=== PATIENT | female | born 1950 | race Caucasian/White ===

== ENCOUNTER 2016-05-08 08:21 | Day surgery (SDC) | payer OTHER ==
[~2016-05-08] VITALS: Ht 156.2 cm; Wt 77.0 kg
[2016-05-08] VITALS (9 sets, daily range): BP systolic 98–129; BP diastolic 56–80; PULSE 67–83; TEMP 36.3–36.8; O2SAT 95–99; Ht 156.2 cm; Wt 77.0 kg
[~2016-05-08 08:21] MED LIST: ACET-1138 PO; ALBUAER19 INH; ASPEC81 PO; ATOR-22 PO; CLB200 PO; GABA-113 PO; HYDR12.55 PO; LEVO50TA6 PO; LOSA1TAB38 PO; METO25TA3 PO; MRP5 PO; OMEP40CA PO; ONDA8TAB6 PO; OXYM0.056 INTNAS; RXC5 PO; SNK PO
[2016-05-08] MEDS ORDERED: GLC/500 PO (09:24)
[2016-05-08] MEDS ORDERED: TRAM-10 PO (09:24)
--- NOTE | 2016-05-08 10:37 | Discharge Instructions ---
Discharge Instructions Procedure Procedure Date: May 08, 2016. Reason for visit: Lumbar Pain. Discharge Discharge Date: May 08, 2016. Discharge Diagnosis: s/p lumbar myelogram Instructions Activity Recommendations: 1 Day-May resume regular activity, 48 Hours of decreased exertion Return to School/Work: no limitations Recommended Home Diet: No Limitations Provider Instructions: ACTIVITY RECOMMENDATIONS: * Rest today. * Resume regular activity in one day. MEDICATIONS: * May take Tylenol or Ibuprofen as needed for pain. DIET: * Resume previous diet. SPECIAL CARE INSTRUCTIONS: Call your doctor if: * Temperature above 101 degrees F. * Pain not relieved by pain medicine ordered. * Increased drainage or redness from incision. * Notify your doctor with any questions or concerns. Call your doctor or go to the nearest Emergency Department if you experience: * Increased chest pain or shortness of breath. FOLLOW UP VISIT: Follow-up with Referring Physician as scheduled. Allergies Coded Allergies: Lisinopril (Verified Adverse Reaction, Unknown, COUGH, 05/08/16) Neto Ghosh Recommendations: Call your doctor if: * Temperature above 101 degrees * Pain not relieved by pain medicine ordered * There is increased drainage or redness from any incision * You have any unanswered questions or concerns. Your Doctors Instructions noted above were prepared by provider Deshaun Balbuena. Patient Signature Section: Patient Instructions Signature Page Cindy Dang Patient (or Guardian) Signature/Date: I have read and understand the instructions given to me by my caregivers. Caregiver/RN/Doctor Signature/Date: The above-named patient and/or guardian has received patient instructions on this date. + Original Patient Signature Page (only) stays with chart. Please make copy for patient.
--- NOTE | 2016-05-08 11:13 | DIAGNOSTIC IMAGING REPORT ---
CT LUMBAR MYELOGRAM CT DOSE: 670.45 mGycm CLINICAL HISTORY: Lumbar pain. TECHNIQUE: Following a fluoroscopically guided lumbar myelogram, axial unenhanced images through the lumbar spine were obtained without IV contrast. Sagittal and coronal reconstructions were viewed utilizing soft tissue and bone algorithms. COMPARISON STUDY: None. FINDINGS: For purposes of numbering on this exam, the L5-S1 disc space is assigned to axial image [id number]. Vertebral body heights are maintained. There is 8 mm of anterolisthesis of L3 on L4 and 4 mm of anterolisthesis of L4 and L5. There are bilateral pedicle screws at the L4 and L5 levels. The hardware is intact. No cervical spine fracture or suspicious lesion is present. No intracanalicular mass is identified on this exam. The conus terminates at the lower L1 level. Paravertebral soft tissues are unremarkable. T12-L1: The central canal and neural foramen are patent. L1-L2: The central canal and neural foramen are patent. L2-L3: The central canal and the neural foramen are patent. L3-L4: There is grade I anterolisthesis with uncovering of the disc. Disc space narrowing with vacuum disc phenomenon is noted. There is facet arthrosis and mild ligamentous hypertrophy. There is severe narrowing of the central canal and lateral recesses with severe narrowing of the right neural foramen and moderate narrowing of the left neural foramen. L4-L5: Evaluation at this disc level is difficult due to streak artifact from hardware. There may be mild disc bulge. There is disc space narrowing with vacuum disc phenomenon at this level. There is at most mild central canal stenosis. There is moderate bilateral neural foraminal stenosis. L5-S1: The central canal is patent. There is mild during of both neural foramen. IMPRESSION: 1. Status post placement of bilateral pedicle screws and associated hardware at the L4 and L5 levels. Hardware intact. 2. Grade I anterolisthesis of L3 on L4 and L4-L5. 3. Severe central canal, lateral recess and right neural foraminal stenosis at L3-L4 due to anterolisthesis, uncovering of the disc, ligamentous hypertrophy and facet arthrosis. 4. Suspected mild central canal stenosis at L4-L5 which is difficult to evaluate due to artifact from the hardware. 5. No lumbar spine fracture. Electronically signed by: Deshaun Balbuena M.D. 05/08/2016 11:11 AM Dictated Date/Time: 05/08/2016 11:00 AM
--- NOTE | 2016-05-08 11:13 | DIAGNOSTIC IMAGING REPORT ---
FLUOROSCOPICALLY GUIDED LUMBAR MYELOGRAM CLINICAL HISTORY: Lumbar pain. COMPARISON STUDY: No previous studies for comparison. FLUOROSCOPY TIME: 0.8 minutes. PROCEDURE: 4 fluoroscopic images were obtained. The procedure, risks and benefits were discussed with the patient including the risk of spinal headache, bleeding, infection and seizure. The patient agreed to the procedure and informed written consent was obtained. The procedure was performed by Dr. Balbuena following a timeout. An L4-L5 pedicle screw fusion was noted. The right L2-L3 interlaminar space was targeted. Skin was prepped and draped in sterile fashion and local anesthesia was achieved with 1% lidocaine. Under intermittent fluoroscopic guidance, a 3.5 inch, 22-gauge spinal needle was directed into the thecal sac with immediate return of clear cerebrospinal fluid. At this time, 10 cc of Isovue-M 200 was instilled into the thecal sac. The thecal sac was opacified. The needle was removed. There was significant ventral indentation upon the thecal sac at the L3-L4 level. The patient was transported to CT. IMPRESSION: 1. Fluoroscopically guided lumbar myelogram prior to CT. 2. Severe narrowing of the thecal sac at the L3-L4 level. 3. Status post L4-L5 fusion. Electronically signed by: Deshaun Balbuena M.D. 05/08/2016 11:11 AM Dictated Date/Time: 05/08/2016 10:43 AM
[2016-06-17] MEDS ORDERED: ETOD400T PO (13:28)
[2016-06-17] MEDS ORDERED: PRAM0.5T10 PO (13:28)
[2016-06-17] MEDS ORDERED: POTACAP PO (13:33)
== END 2016-05-08 13:00 | disposition home or self-care (01) ==
LOC: C.ACU 08:21
PROVIDERS: ATTEND Orthopaedic Surgery Orthopaedic Surgery of the Spine
DX: M54.5 Low back pain (principal); M16.0 Bilateral primary osteoarthritis of hip; Z96.651 Presence of right artificial knee joint; Z96.642 Presence of left artificial hip joint

== ENCOUNTER 2016-07-05 05:31 | Inpatient (IN) | payer OTHER ==
--- NOTE | 2016-06-17 13:38 | PAT Medication Instructions ---
Service Date Jun 17, 2016. Current Home Medication List Acetaminophen (Tylenol Extra Strength), 1,000 MG PO Q8 Albuterol Inhaler (Ventolin Inhaler), 2 PUFFS INH QID PRN for PRN Atorvastatin (Lipitor), 20 MG PO QPM Etodolac (Etodolac), 1 TAB PO BID Gabapentin (Neurontin), 2 TAB PO HS Hydrochlorothiazide (Hydrochlorothiazide), 1 TAB PO QAM Levothyroxine Sodium (Levothyroxine Sodium), 1 TAB PO QAM, Losartan Potassium (Cozaar), 100 MG PO QAM Metformin Hcl (Glucophage), 500 MG PO BID Metoprolol Succ (Toprol Xl) (Toprol-Xl), 25 MG PO QAM Omeprazole (Prilosec), 40 MG PO QAM Oxymetazoline Hcl (Afrin), 1 SPRAY INTNAS HS Potassium Gluconate (K-99), 1 TAB PO QAM Pramipexole Dihydrochloride (Pramipexole Dihydrochlori), 1 TAB PO UD Senna (Senna Lax), 17.2 MG PO HS Tramadol (Ultram), 50 MG PO Q8H PRN for Pain Medication Instructions For Your Scheduled Surgery - Hold the following medications 48 hours prior to surgery: Metformin Hcl (Glucophage), 500 MG PO BID - Do not take after noon the day before surgery: Pramipexole Dihydrochloride (Pramipexole Dihydrochlori), 1 TAB PO UD - Hold the following medications the morning of surgery: Etodolac (Etodolac), 1 TAB PO BID Losartan Potassium (Cozaar), 100 MG PO QAM Potassium Gluconate (K-99), 1 TAB PO QAM Hydrochlorothiazide (Hydrochlorothiazide), 1 TAB PO QAM - Take the following medications the morning of surgery with a sip of water OTHERWISE NOTHING TO EAT OR DRINK AFTER MIDNIGHT: Albuterol Inhaler (Ventolin Inhaler), 2 PUFFS INH QID PRN for PRN (use if needed ; BRING TO HOSPITAL) Acetaminophen (Tylenol Extra Strength), 1,000 MG PO Q8 (may take up to 4 hours prior to surgery if needed) Tramadol (Ultram), 50 MG PO Q8H PRN for Pain (may take up to 4 hours prior to surgery if needed) Omeprazole (Prilosec), 40 MG PO QAM Metoprolol Succ (Toprol Xl) (Toprol-Xl), 25 MG PO QAM Levothyroxine Sodium (Levothyroxine Sodium), 1 TAB PO QAM - Take the following medications as scheduled the night before surgery: Albuterol Inhaler (Ventolin Inhaler), 2 PUFFS INH QID PRN for PRN Gabapentin (Neurontin), 2 TAB PO HS Atorvastatin (Lipitor), 20 MG PO QPM Oxymetazoline Hcl (Afrin), 1 SPRAY INTNAS HS Senna (Senna Lax), 17.2 MG PO HS Acetaminophen (Tylenol Extra Strength), 1,000 MG PO Q8 Tramadol (Ultram), 50 MG PO Q8H PRN for Pain If you have any questions please call us at [phone] or [phone] or [phone]
[2016-06-17 14:11] LABS: BASO % 0.3 %; BASO ABS # 0.02 K/uL (0-0.2); COMPLETE YES; EOS % 1.1 %; HEMATOCRIT 37.5 % (37-47); IG% 0.2 %; LYMPH % 24.8 %; LYMPH ABS # 1.51 K/uL (1.2-3.4); MEAN CELL VOLUME 82.6 fL (80-100); MEAN CORPUSCULAR HEMOGLOBIN 27.5 pg (25-34); MEAN CORPUSCULAR HGB CONC 33.3 g/dl (32-36); MEAN PLATELET VOLUME 10.5 fL (7.4-10.4); MONO % 11.3 %; NEUT % 62.3 %; PLATELET COUNT 235 K/uL (130-400); RED BLOOD COUNT 4.54 M/uL (4.2-5.4); WHITE BLOOD COUNT 6.09 K/uL (4.8-10.8)
[2016-06-17 14:41] LABS: URINE APPEARANCE CLEAR (CLEAR); URINE BILIRUBIN NEG (NEG); URINE COLOR YELLOW; URINE NITRITE NEG (NEG); URINE PH 6.5 (4.5-7.5); URINE SPECIFIC GRAVITY 1.021 (1.000-1.030); UROBILINOGEN NEG (NEG)
[2016-06-17 14:48] LABS: BLOOD UREA NITROGEN 24 mg/dl (7-18); BUN/CREATININE RATIO 27.6 (10-20); CALCIUM 9.1 mg/dl (8.5-10.1); CARBON DIOXIDE 29 mmol/L (21-32); CHLORIDE 104 mmol/L (98-107); CREATININE 0.88 mg/dl (0.60-1.20); GLUCOSE 88 mg/dl (70-99); POTASSIUM 4.2 mmol/L (3.5-5.1); SODIUM 142 mmol/L (136-145)
[2016-06-17 14:59] LABS: MANUAL MICROSCOPIC REQUIRED? NO; REVIEW REQ? NO
[2016-06-17 16:50] VITALS: BMI 32.0
[~2016-07-05] VITALS: Ht 154.9 cm; Wt 77.7 kg
[2016-07-05] VITALS (8 sets, daily range): BP systolic 114–164; BP diastolic 66–96; PULSE 80–92; TEMP 36.3–36.6; O2SAT 90–99; Ht 154.9 cm; Wt 77.7 kg
[~2016-07-05 05:31] MED LIST changes: -ASPEC81 PO; -CLB200 PO; +ETOD400T PO; +GLC/500 PO; -MRP5 PO; -ONDA8TAB6 PO; +POTACAP PO; +PRAM0.5T10 PO; -RXC5 PO; +TRAM-10 PO
[2016-07-05] MEDS ORDERED: CEFAZOLIN 1000MG/55 ML D5W IV SCH (06:00)
[2016-07-05] MEDS ORDERED: LACTATED RINGER'S 1000ML 1,000 ML IV SCH (06:00)
[2016-07-05] MEDS ORDERED: POLY335019 PO (06:11)
[2016-07-05] MEDS ORDERED: DOCU-94 PO (06:11)
[2016-07-05] MEDS ORDERED: MIDAZOLAM HCL 1 MG/ML 2ML VIAL ONE (06:48)
[2016-07-05] MEDS ORDERED: FENTANYL CITRATE INJ 50 MCG/1 ML 2 ML VIAL ONE ×3 (06:48→10:41)
[2016-07-05] MEDS ORDERED: BUPIVACAINE/EPINEPHRINE 0.5% MPF 1:200,000 30 ML VIAL ONE (07:04)
[2016-07-05] MEDS ORDERED: SODIUM CHLORIDE 0.9% PF 50 ML VIAL ONE (07:04)
[2016-07-05] MEDS ORDERED: ONDANSETRON INJ 2 MG/ML 2 ML VIAL IV PRN ×2 (07:15→11:00)
[2016-07-05] MEDS ORDERED: HYDROmorphone INJ 1 MG/ML SYR IV PRN ×2 (07:15→14:00)
[2016-07-05] MEDS ORDERED: FENTANYL CITRATE INJ 50 MCG/1 ML 2 ML VIAL IV PRN (07:15)
[2016-07-05] MEDS ORDERED: ATROPINE SULFATE 0.1 MG/ML 5ML SYR IV PRN (07:15)
[2016-07-05] MEDS ORDERED: EpHEDrine SULFATE INJ 50 MG/ML AMP IV PRN (07:15)
--- NOTE | 2016-07-05 07:21 | History and Physical ---
History & Physical Date & Time of Service: Jul 05, 2016 at 07:11 Chief Complaint: Lumbar Spinal Stenosis Primary Care Physician: Zenia Emerson M.D. History of Present Illness Source: patient Patient presents with low back pain and bilateral neurogenic claudication. Ongoing for several years. Facet replacement L4-5 in 2013. Failed conservative measures and presents for surgical intervention. Social History Smoking Status: Never Smoker Smokeless Tobacco Use: No Alcohol Use: none Drug Use: none Allergies Coded Allergies: Lisinopril (Verified Adverse Reaction, Mild, COUGH, 07/05/16) Home Medications Scheduled Acetaminophen (Tylenol Extra Strength), 1,000 MG PO Q8 Atorvastatin (Lipitor), 20 MG PO QPM Docusate Sodium (Colace), 2 CAP PO prn Etodolac (Etodolac), 1 TAB PO BID Gabapentin (Neurontin), 2 TAB PO HS Hydrochlorothiazide (Hydrochlorothiazide), 1 TAB PO QAM Levothyroxine Sodium (Levothyroxine Sodium), 1 TAB PO QAM, Losartan Potassium (Cozaar), 100 MG PO QAM Metformin Hcl (Glucophage), 500 MG PO BID Metoprolol Succ (Toprol Xl) (Toprol-Xl), 25 MG PO QAM Omeprazole (Prilosec), 40 MG PO QAM Oxymetazoline Hcl (Afrin), 1 SPRAY INTNAS HS Polyethylene Glycol 3350 (Miralax), 17 GM PO weekly Potassium Gluconate (K-99), 1 TAB PO QAM Pramipexole Dihydrochloride (Pramipexole Dihydrochlori), 1 TAB PO UD Senna (Senna Lax), 17.2 MG PO HS Scheduled PRN Albuterol Inhaler (Ventolin Inhaler), 2 PUFFS INH QID PRN for PRN Tramadol (Ultram), 50 MG PO Q8H PRN for Pain Physical Exam Vital Signs Date Time Temp Pulse Resp B/P Pulse Ox O2 Delivery O2 Flow Rate FiO2 07/05/16 05:47 36.4 85 20 164/96 96 Room Air General Appearance: WD/WN Head: normocephalic Eyes: normal inspection ENT: normal ENT inspection Neck: supple Respiratory/Chest: chest non-tender Cardiovascular: regular rate, rhythm, no edema Abdomen/GI: non tender Back: normal inspection Extremities/Musculoskelatal: no calf tenderness, normal range of motion Neurologic/Psych: no motor/sensory deficits Skin: normal color Diagnostics Laboratory Results Results Past 24 Hours Test 07/05/16 05:53 Range/Units Bedside Glucose 128 70-90 mg/dl Diagnostic Radiology CT/myelogram reveals stenosis L3-4 due to facet arthropathy with previous fusion L4-5. Vacuum disc L3-4. Impression Assessment and Plan Adjacent level stenosis with pain and claudication. Patient failed conservative measures and presents for removal of hardware L4-5 and decompression L3-4 with an instrumented fusion L3-L5 risks benefits and alternatives to surgery discussed. Advanced Directives Existing Living Will: No Existing Power of [employer] Senior Officer: No
--- NOTE | 2016-07-05 08:15 | History & Physical Bridge Note ---
H&P Re-Evaluation Bridge Note: I have examined the patient, reviewed the History & Physical and in the interval since the performance of the History & Physical I have noted the following changes of clinical significance: No changes noted
[2016-07-05] MEDS ORDERED: HYDROmorphone INJ 2 MG/ML SYR/VIAL ONE ×3 (08:57→11:03)
[2016-07-05] MEDS ORDERED: PROPOFOL IV EMULSION 10 MG/ML 20 ML VIAL IV ONE (09:03)
[2016-07-05] MEDS ORDERED: DEXAMETHASONE SOD INJ 4 MG/ML VIAL ONE (09:03)
[2016-07-05] MEDS ORDERED: ROCURONIUM BROMIDE 10 MG/ML 5 ML VIAL ONE ×2 (09:03→10:26)
[2016-07-05] MEDS ORDERED: LIDOCAINE HCL 2% 2 ML VIAL (20MG/ML) ONE (09:03)
[2016-07-05] MEDS: BACITRACIN 50000 UNIT VIAL ONE ×2 (09:51→10:37)
[2016-07-05] MEDS ORDERED: EpHEDrine SULFATE 50MG/5ML SYR ONE (10:26)
[2016-07-05] MEDS ORDERED: CEFAZOLIN SOD 1 GM VIAL ONE (10:26)
[2016-07-05] MEDS ORDERED: PHENYLEPHRINE 100MCG/ML 5ML SYR ONE (10:26)
[2016-07-05] MEDS ORDERED: ONDANSETRON INJ 2 MG/ML 2 ML VIAL ONE ×2 (10:26→11:02)
[2016-07-05] MEDS ORDERED: FLOSEAL HEMOSTATIC MATRIX 10ML TOP ONE (10:35)
[2016-07-05] MEDS ORDERED: SODIUM CHLORIDE 0.9% 1000ML 1,000 ML IV SCH (10:48)
--- NOTE | 2016-07-05 10:48 | [facility] Post Operative Brief Note ---
Immediate Operative Summary Operative Date Jul 05, 2016. Pre-Operative Diagnosis Lumbar Spinal Stenosis Post-Operative Diagnosis same as pre-operative Procedure(s) Performed L3-L4, L4-L5 Lumbar Laminectomy, Decompression, Pedicle Screw Fixation, Placement of Interbody Device; L3-L4, Posterolateral Fusion, Application of Allograft, Bone Morphogenetic Surgeon Dr. Mika Coleman American [employer] Studies Professor Surgeon(s) Erich Cuadra PA-C Estimated Blood Loss 200ml Findings stenosis/spondy Specimens SPECIMENS: A: Removal of lumbar hardware L4-L5 B: Right facet joint tissue
[2016-07-05] MEDS ORDERED: PHARMACY GLYCEMIC MGMT CONSULT PRN (10:55)
--- NOTE | 2016-07-05 10:55 | DIAGNOSTIC IMAGING REPORT ---
INTRAOPERATIVE LUMBAR SPINE 2 VIEWS CLINICAL HISTORY: L4-L5 HARDWARE REMOVAL/ L3-L5 FUSION AND DECOMPRESSION COMPARISON STUDY: CT scan dated 05/08/2016 FINDINGS: There are postsurgical changes of an L3-4 discectomy and interbody fusion. There is a grade 1 spondylolisthesis of L3 on L4. There are right-sided pedicle screws at the L3, L4, and L5 levels. There are left-sided pedicle screws present at the L3 and L4 levels. There are adjoining spinal rods. 2 fluoroscopic spot images were provided for interpretation. 12 seconds of fluoroscopic time was utilized. IMPRESSION: Postsurgical changes as described above. Electronically signed by: Fabrice Atkins M.D. 07/05/2016 10:52 AM Dictated Date/Time: 07/05/2016 10:51 AM
[2016-07-05] MEDS ORDERED: MAGNESIUM HYDROXIDE SUSP 30 ML UDC PO PRN (11:00)
[2016-07-05] MEDS ORDERED: NALOXONE HCL 0.4 MG/1 ML VIAL/CARP IV PRN ×2 (11:00)
[2016-07-05] MEDS ORDERED: hydrOXYzine HCL 25 MG TAB PO PRN (11:00)
[2016-07-05] MEDS ORDERED: DO NOT ADMINISTER PNEUMOCOCCAL VACCINE PRN ×2 (11:00)
[2016-07-05] MEDS ORDERED: PROMETHAZINE HCL INJ 12.5 MG in SODIUM CHLORIDE 0.9% 50ML 50 ML IV PRN (11:00)
[2016-07-05] MEDS ORDERED: BISACODYL 10 MG SUPP PR PRN (11:00)
[2016-07-05] MEDS ORDERED: SOD PHOSPHATE/SOD BIPHOSPHATE ENEMA 132 ML BTL PR PRN (11:00)
[2016-07-05] MEDS ORDERED: LORAZEPAM 0.5 MG TAB PO PRN (11:00)
[2016-07-05] MEDS ORDERED: LORAZEPAM INJ 0.5 MG in SYRINGE 0.75 ML IV PRN (11:00)
[2016-07-05] MEDS ORDERED: ALBUTEROL HFA 8 GM INHALER INH PRN (11:00)
[2016-07-05] MEDS ORDERED: METOCLOPRAMIDE HCL INJ 5 MG/ML 2 ML VIAL IV PRN (11:00)
[2016-07-05] MEDS ORDERED: ACETAMINOPHEN IV 100 ML IV PRN (11:00)
[2016-07-05] MEDS ORDERED: ALUMINUM/MAGNESIUM SUSP 30 ML UDC PO PRN (11:00)
[2016-07-05] MEDS ORDERED: FAMOTIDINE 20 MG TAB PO PRN (11:00)
[2016-07-05] MEDS ORDERED: DO NOT ADMINISTER FLU VACCINE PRN ×3 (11:00)
[2016-07-05] MEDS ORDERED: ACETAMINOPHEN 500 MG TAB PO PRN (11:00)
[2016-07-05] MEDS ORDERED: KETOROLAC TROMETHAMINE 30 MG/ML VIAL ONE (11:02)
[2016-07-05] MEDS ORDERED: NEOSTIGMINE METHYLSULFATE 1 MG/ML 10ML VIAL ONE (11:02)
[2016-07-05] MEDS ORDERED: GLYCOPYRROLATE INJ 0.2 MG/ML VIAL ONE (11:02)
--- NOTE | 2016-07-05 11:09 | OPERATIVE REPORT ---
DATE OF OPERATION: 07/05/2016 PREOPERATIVE DIAGNOSES: Spinal stenosis, spondylolisthesis L3-L4. 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 PROCEDURE PERFORMED: 1. Removal of posterior instrumentation L4-L5. 2. Exploration of fusion L4-L5. 3. Lumbar decompression, medial facetectomies, foraminotomies L3-L4. 4. Posterior spinal fusion L3-L4, L4-L5. 5. Placement posterior segmental instrumentation using Orthros rods and screws, L3-4, L4-L5. 6. Interbody fusion L3-L4. 7. Placement of PEEK cage 12 x 22 mm at L3-L4. 8. Placement of locally harvested morselized autograft posterior gutters. 9. Placement of Infuse collagen sponge combined with Mastergraft in posterior gutters and Cristiana bone graft in the interbody space. SURGEON: Dr. Mika Coleman. HUMAN RESOURCE ADVISER: Due to the complex nature of the procedure, the entire surgery was performed with the assistant real estate manager of Erich Ortega PA-C. The retail assistant, under direct supervision, was involved in the actual performance of all aspects of the surgical procedure including hemostasis, tissue retraction and incision, instrument management, patient positioning, and wound closure. ANESTHESIA: General. DISPOSITION: The patient awakened and taken to PACU in stable condition. HISTORY OF PATIENT'S PROBLEMS: This is a 65-year-old female that presents with above-mentioned diagnosis. After failing an extensive course of nonoperative care, elected to undergo the above-mentioned procedure. Risks, benefits, pros, cons, and alternatives were outlined in detail preoperatively. DESCRIPTION OF PROCEDURE: The patient was met with preoperatively, the case discussed and all questions were addressed. At that point the patient was taken back to the operative suite and after undergoing successful general intubation by the department of anesthesia was placed in prone position on Aristides table atop a Guzman frame. All bony prominences were well padded and the eyes were inspected to ensure there was no external pressure placed upon them. At this point, lumbar spine was prepped and draped in normal sterile fashion. Sharp dissection with the assistance of Bovie cautery performed down to and exposing the lamina and transverse processes of L3 and instrumentation at L4-L5 level bilaterally. I then proceeded to remove the hardware bilaterally, explored the fusion were noted continued motion across the L4-L5 region. I then performed a complete laminectomy of L3 addressing severe lateral recess as well as foraminal disease. After decompression, pedicle screws were placed on the left at L3 and L4, we were unable to place screws back in L5 secondary to placement of the screw in its extra pedicular approach. On the right we were able to get screws in L3, L4 and L5 bilaterally. Appropriate size rods provisionally placed through a transforaminal approach on the left, a complete discectomy of L3-L4 was performed, endplates curetted to subcortical bleeding bone and a 12 x 22 mm PEEK cage filled with Cristiana bone grafting tapped into position. The rods were then compressed, locked into final position bilaterally and transverse processes of L3, L4, L5 burred to subcortical bleeding bone. Infuse collagen sponge combined with Mastergraft and locally harvested morcellized autograft was placed in the posterior gutters. Crosslink was locked into position, 7 flat DONNY drain inserted. Incision was closed with 1-0 Vicryl in the fascia, 2-0 Vicryl subcutaneously, 4-0 Monocryl for final skin closure. Steri-Strips and sterile dressing placed. The patient was awakened and taken to PACU in stable condition. I attest to the content of the Intraoperative Record and any orders documented therein. Any exceptio ns are noted below.
[2016-07-05] MEDS ORDERED: HYDROmorphone HCL 0.5MG/ML 50 ML CASSETTE ONE (11:18)
--- NOTE | 2016-07-05 11:49 | Anesthesiology Progress Note ---
Anesthesia Post Op Note Date & Time Jul 05, 2016 at 11:48 Vital Signs Pain Intensity: 4 Vital Signs Past 12 Hours Date Time Temp Pulse Resp B/P Pulse Ox O2 Delivery O2 Flow Rate FiO2 07/05/16 11:40 76 12 133/77 99 Mask 10 07/05/16 11:30 78 11 148/79 99 Mask 10 07/05/16 11:20 78 13 143/84 97 Mask 10 07/05/16 11:11 36.5 91 14 139/83 98 Mask 10 07/05/16 05:47 36.4 85 20 164/96 96 Room Air Notes Mental Status: alert / awake / arousable, participated in evaluation Pt Amnestic to Procedure: Yes Nausea / Vomiting: adequately controlled Pain: adequately controlled Airway Patency, RR, SpO2: stable & adequate BP & HR: stable & adequate Hydration State: stable & adequate Anesthetic Complications: no major complications apparent
[2016-07-05] MEDS ORDERED: DEXTROSE 50% 50 ML SYR IV PRN (12:00)
[2016-07-05] MEDS ORDERED: GLUCAGON FOR INJ 1 MG VIAL SQ PRN (12:00)
[2016-07-05] MEDS ORDERED: GLUCOSE 10 TABS/TUBE PO PRN (12:00)
[2016-07-05] MEDS ORDERED: GLUCOSE 40% GEL 15 GM TUBE PO PRN (12:00)
--- NOTE | 2016-07-05 13:13 | Pharmacy Progress Note ---
Glycemic Control Intl Consult Date of Service Jul 05, 2016. Scope Glycemic Pharmacist consulted by Dr Mitesh Coleman on 07/05/16 for glycemic control and to write orders per [facility] inpatient glycemic control protocol Objective Weight (Kilograms): 77.700 Accuchecks BSG (last 24hrs): Test 07/05/16 05:53 07/05/16 11:17 Bedside Glucose 128 mg/dl (70-90) 174 mg/dl (70-90) Recent Pertinent Medications Outpatient Anti-diabetic Regimen: * Metformin 500mg PO BID * A1c = ? % Risk Factors for Insulin Resistance: * Steroids: may receive Dexamethasone IV in the OR today; has also been ordered Dexamethasone 6 mg IV Q 8 hrs x 3 post-op doses * Infection: n/a * Pressors: n/a * IVF: LR @ 150cc/hr * Recent Surgery: for lumbar decompression/fusion today * Diet: Regular diet has been ordered * Mechanical Ventilation: n/a Assessment & Plan ASSESSMENT: 07/05/16 * Type 2 diabetic admitted today for surgical management of low back pain and bilateral neurogenic claudication; patient taken to OR for lumbar decompression/ fusion * She is managed w/ metformin monotherapy; however we will hold this until after surgery and resume when tolerating a diet and renal fxn has been assessed and adequate * Dexamethasone has been ordered post-op; high dose dexamethasone will likely lead to increased insulin resistance over then next several days - will treat this patient with Novolog correctional and prandial insulin. Will also add basal insulin this evening if BSGs exceed 180. * Additional BSG check overnight will be added to provide additional correctional insulin should the patient become hyperglycemic secondary to steroid administration * A1c will be added to lab draw tomorrow to determine most recent level of control PLAN FOR INPATIENT GLYCEMIC CONTROL: * If BSG exceeds 180 this evening, give Lantus 8 units SQ x 1 * Novolog SQ ACHS and at 0200 tonight and cover with the following parameters: * Correction factor 25 mg/dl/unit * Carb ratio to 1 unit per 9 grams CHO consumed * Goal range Low 110 mg/dL - High 140 mg/dL * Please note that the plan above was derived based on current level of insulin resistance and hospital stress. These recommendations are appropriate for inpatient admission only. Plan of care upon discharge will need to be reassessed to avoid potential outpatient hypo/hyperglycemia. Thank you.
[2016-07-05] MEDS: LACTATED RINGER'S 1000ML 1,000 ML IV SCH ×2 (14:35→18:27)
[2016-07-05] MEDS: HYDROmorphone HCL 0.5MG/ML 50 ML CASSETTE IV PRN ×2 (15:06→23:10)
[2016-07-05] MEDS: [UNRECOGNIZED DRUG - OTHER] SCH (16:00)
[2016-07-05] MEDS: CEFAZOLIN IV 2,000 MG in DEXTROSE 5% 50ML 50 ML IV SCH (16:40)
[2016-07-05] MEDS: DEXAMETHASONE INJ 6 MG in SYRINGE 0 ML IV SCH (16:43)
[2016-07-05] MEDS: PRAMIPEXOLE DIHYDROCHLORIDE 0.5 MG TAB PO SCH ×2 (18:28→21:32)
[2016-07-05] MEDS: INSULIN ASPART 100 UNITS/ML 3 ML PEN SC SCH ×2 (19:22→21:32)
[2016-07-05] MEDS: DOCUSATE SODIUM/SENNA 50/8.6MG TAB PO SCH (21:32)
[2016-07-05] MEDS: GABAPENTIN 300 MG CAP PO SCH (21:32)
[2016-07-05] MEDS: ATORVASTATIN 20 MG TAB PO SCH (21:32)
[2016-07-06] MEDS: LACTATED RINGER'S 1000ML 1,000 ML IV SCH ×2 (00:08→06:48)
[2016-07-06] MEDS: DEXAMETHASONE INJ 6 MG in SYRINGE 0 ML IV SCH ×2 (00:09→08:24)
[2016-07-06] MEDS: CEFAZOLIN IV 2,000 MG in DEXTROSE 5% 50ML 50 ML IV SCH (00:10)
[2016-07-06] MEDS: [UNRECOGNIZED DRUG - OTHER] SCH ×2 (00:38→07:05)
[2016-07-06] MEDS ORDERED: INSULIN ASPART 100 UNITS/ML 3 ML PEN SC ONE (02:00)
[2016-07-06 02:56] VITALS: BP 122/72; PULSE 67; TEMP 36.6; O2SAT 93
[2016-07-06] MEDS ORDERED: TRAMADOL HCL 50 MG TAB PO PRN (06:00)
[2016-07-06] MEDS ORDERED: HYDROmorphone INJ 1 MG/ML SYR IV PRN (06:00)
[2016-07-06] MEDS ORDERED: HYDROmorphone INJ 0.5 MG/0.5 ML SYR IV PRN (06:00)
[2016-07-06] MEDS ORDERED: DC PCA SCH (06:00)
[2016-07-06] MEDS: LEVOTHYROXINE 50 MCG TAB PO SCH (06:04)
[2016-07-06 07:10] VITALS: BP 110/69; PULSE 74; TEMP 36.5; O2SAT 92
[2016-07-06 07:14] LABS: COMPLETE YES; HEMATOCRIT 30.9 % (37-47); IG% 0.2 %; LYMPH % 6.1 %; LYMPH ABS # 0.66 K/uL (1.2-3.4); MEAN CELL VOLUME 85.6 fL (80-100); MEAN CORPUSCULAR HEMOGLOBIN 28.5 pg (25-34); MEAN CORPUSCULAR HGB CONC 33.3 g/dl (32-36); MEAN PLATELET VOLUME 10.7 fL (7.4-10.4); MONO % 5.1 %; NEUT % 88.6 %; PLATELET COUNT 198 K/uL (130-400); RED BLOOD COUNT 3.61 M/uL (4.2-5.4); WHITE BLOOD COUNT 10.89 K/uL (4.8-10.8)
[2016-07-06] MEDS ORDERED: NURSING VERBAL MED ORDER ONE (07:15)
[2016-07-06 07:41] LABS: BUN/CREATININE RATIO 23.7 (10-20); CALCIUM 8.7 mg/dl (8.5-10.1); CREATININE 0.68 mg/dl (0.60-1.20)
[2016-07-06] MEDS: OXYCODONE HCL IR 5 MG TAB (IMMEDIATE RELEASE) PO PRN ×4 (08:23→18:28)
[2016-07-06] MEDS: PANTOprazole SOD 40 MG TAB PO SCH (08:24)
[2016-07-06] MEDS: METOPROLOL SUCC 25MG EXT REL TAB PO SCH (08:24)
[2016-07-06] MEDS: LOSARTAN POTASSIUM 50 MG TAB PO SCH (08:25)
[2016-07-06 08:27] LABS: ESTIMATED AVERAGE GLUCOSE 140 mg/dl; HA1C FLAG Normal (Normal)
[2016-07-06] MEDS: INSULIN ASPART 100 UNITS/ML 3 ML PEN SC SCH ×4 (08:31→20:34)
[2016-07-06 10:57] VITALS: BP 113/73; PULSE 75; TEMP 36.5; O2SAT 94
--- NOTE | 2016-07-06 11:29 | Pharmacy Progress Note ---
Glycemic Control: Progress Nt Date of Service Jul 06, 2016. Scope Glycemic Pharmacist consulted by Dr Coleman on 07/05 for glycemic control and to write orders per [facility] inpatient glycemic control protocol. Objective Accuchecks BSG (last 24hrs): Test 07/05/16 13:43 07/05/16 17:10 07/05/16 21:13 07/06/16 02:28 Bedside Glucose 163 mg/dl (70-90) 183 mg/dl (70-90) 177 mg/dl (70-90) 146 mg/dl (70-90) Test 07/06/16 06:40 07/06/16 08:08 Random Glucose 168 mg/dl (70-99) Bedside Glucose 160 mg/dl (70-90) Laboratory Data (last 24hrs) Test 07/06/16 06:40 Anion Gap 6.0 mmol/L BUN/Creatinine Ratio 23.7 Blood Urea Nitrogen 16 mg/dl Creatinine 0.68 mg/dl Hemoglobin A1c 6.5 % Potassium Level 4.0 mmol/L Sodium Level 145 mmol/L White Blood Count 10.89 K/uL Red Blood Count 3.61 M/uL Hemoglobin 10.3 g/dL Hematocrit 30.9 % Mean Corpuscular Volume 85.6 fL Mean Corpuscular Hemoglobin 28.5 pg Mean Corpuscular Hemoglobin Concent 33.3 g/dl Platelet Count 198 K/uL Mean Platelet Volume 10.7 fL Neutrophils (%) (Auto) 88.6 % Lymphocytes (%) (Auto) 6.1 % Monocytes (%) (Auto) 5.1 % Eosinophils (%) (Auto) 0.0 % Basophils (%) (Auto) 0.0 % Neutrophils # (Auto) 9.66 K/uL Lymphocytes # (Auto) 0.66 K/uL Monocytes # (Auto) 0.55 K/uL Eosinophils # (Auto) 0.00 K/uL Basophils # (Auto) 0.00 K/uL HbA1c: Test 07/06/16 06:40 Hemoglobin A1c 6.5 % (4.5-5.6) H Recent Pertinent Medications Outpatient Anti-diabetic Regimen: * Metformin 500mg PO BID The patient is currently receiving: * Basal insulin: None * Correctional Insulin: Novolog Correction per scale ACHS + 0200 check last night Goal Range: Low 110 mg/dL - High 140 mg/dL Correction Factor: 25 mg/dL/unit * Prandial insulin: Per carb ratio of 1 unit per 9 grams CHO consumed * Oral Agents: None at this time Risk Factors for Insulin Resistance: * Steroids: Decadron 6 mg IV q8h x 3 doses postop - last dose this AM * Recent Surgery: POD 1 s/p lumbar surgery * Diet: type 2 diabetes Assessment & Plan ASSESSMENT: 07/05/16 * Type 2 diabetic admitted today for surgical management of low back pain and bilateral neurogenic claudication; patient taken to OR for lumbar decompression/ fusion * She is managed w/ metformin monotherapy; however we will hold this until after surgery and resume when tolerating a diet and renal fxn has been assessed and adequate * Dexamethasone has been ordered post-op; high dose dexamethasone will likely lead to increased insulin resistance over then next several days - will treat this patient with Novolog correctional and prandial insulin. Will also add basal insulin this evening if BSGs exceed 180. * Additional BSG check overnight will be added to provide additional correctional insulin should the patient become hyperglycemic secondary to steroid administration * A1c will be added to lab draw tomorrow to determine most recent level of control 07/06/16 * Ms. Dang rec'd 10 units of insulin yesterday with BSGs ranging from 146-183 in the past 24 hrs * She did not require any Lantus last night b/c of her BSG * Expect BSGs may remain where they are until tomorrow AM once Decadron wears off * Will plan to continue current CF and CR as well as resume metformin - no contraindications to resuming * Can most likely remove CR tomorrow PLAN FOR INPATIENT GLYCEMIC CONTROL: * Continue Novolog ACHS * Goal 110-140 * CF 25 * CR 9 * Restart metformin 500 mg BID with dinner tonight RECOMMENDATIONS FOR DISCHARGE: * A1c indicates excellent outpatient control; continue metformin Thank you.
--- NOTE | 2016-07-06 11:33 | PROGRESS NOTE ---
DATE: 07/06/2016 DATE: 07/06/2016. SUBJECTIVE: Postop day 1. Back pain controlled. Leg pain markedly improved. Vital signs stable. T-max 36.6. DONNY drained 90 mL. Hematocrit this a.m. is 30.9. OBJECTIVE: On exam, patient has good strength to testing. Appears comfortable. ASSESSMENT: Status post lumbar decompression and fusion. PLAN: At this time, will initiate physical therapy, advance her bowel regimen and anticipate home possibly Friday.
[2016-07-06 15:58] VITALS: BP 108/56; PULSE 81; TEMP 36.7; O2SAT 94
[2016-07-06] MEDS: METFORMIN HCL 500 MG TAB PO SCH (18:10)
[2016-07-06] MEDS: PRAMIPEXOLE DIHYDROCHLORIDE 0.5 MG TAB PO SCH ×2 (18:10→21:07)
[2016-07-06] MEDS: ATORVASTATIN 20 MG TAB PO SCH (21:07)
[2016-07-06] MEDS: GABAPENTIN 300 MG CAP PO SCH (21:07)
[2016-07-06] MEDS: DOCUSATE SODIUM/SENNA 50/8.6MG TAB PO SCH (21:07)
[2016-07-06 23:07] VITALS: BP 149/81; PULSE 86; TEMP 36.5; O2SAT 92
[2016-07-07] MEDS: OXYCODONE HCL IR 5 MG TAB (IMMEDIATE RELEASE) PO PRN ×5 (00:20→21:47)
[2016-07-07] MEDS: POLYETHYLENE (MIRALAX) 17 GM PACK PO SCH ×3 (06:00→17:52)
[2016-07-07] MEDS: LEVOTHYROXINE 50 MCG TAB PO SCH (06:26)
[2016-07-07 06:42] VITALS: BP 137/72; PULSE 81; TEMP 36.5; O2SAT 96
[2016-07-07] MEDS: METFORMIN HCL 500 MG TAB PO SCH ×2 (07:38→17:52)
[2016-07-07] MEDS: POTASSIUM GLUCONATE 595 MG PO SCH (07:39)
[2016-07-07] MEDS: LOSARTAN POTASSIUM 50 MG TAB PO SCH (07:39)
[2016-07-07] MEDS: PANTOprazole SOD 40 MG TAB PO SCH (07:40)
[2016-07-07] MEDS: METOPROLOL SUCC 25MG EXT REL TAB PO SCH (07:41)
[2016-07-07] MEDS: INSULIN ASPART 100 UNITS/ML 3 ML PEN SC SCH ×4 (07:48→21:49)
--- NOTE | 2016-07-07 08:59 | PROGRESS NOTE ---
DATE: 07/07/2016 SUBJECTIVE: She is postoperative day #2 lumbar decompression and fusion. She is doing fantastic. She has no radicular leg pain. The back pain is controlled. DONNY drain output last shift was 35 mL. She is passing flatus, but no bowel movement. Yesterday in physical therapy, ambulating 500 feet. No other complaints. PHYSICAL EXAMINATION: GENERAL: She is sitting in a chair. She is in no obvious distress. VITAL SIGNS: Stable. BACK: Lumbar to clean, dry and intact. LOWER EXTREMITIES: Neurovascularly intact. Calves are soft, nontender. MARGUERITE hose intact. ASSESSMENT: Postop day #2 lumbar decompression and fusion. PLAN: Maintain DONNY drain and dressing. We will continue with bowel regimen. DVT prophylaxis in the form of TEDs and SCDs. Continue ambulation. Anticipate discharge home tomorrow.
--- NOTE | 2016-07-07 09:44 | Pharmacy Progress Note ---
Glycemic Control: Progress Nt Date of Service Jul 07, 2016. Scope Glycemic Pharmacist consulted by Dr Coleman on 07/05 for glycemic control and to write orders per [facility] inpatient glycemic control protocol. Objective Accuchecks BSG (last 24hrs): Test 07/06/16 12:05 07/06/16 17:18 07/06/16 20:26 07/07/16 07:26 Bedside Glucose 162 mg/dl (70-90) 159 mg/dl (70-90) 118 mg/dl (70-90) 111 mg/dl (70-90) HbA1c: Test 07/06/16 06:40 Hemoglobin A1c 6.5 % (4.5-5.6) H Recent Pertinent Medications Outpatient Anti-diabetic Regimen: * Metformin 500mg PO BID The patient is currently receiving: * Basal insulin: None * Correctional Insulin: Novolog Correction per scale ACHS Goal Range: Low 110 mg/dL - High 140 mg/dL Correction Factor: 25 mg/dL/unit * Prandial insulin: Per carb ratio of 1 unit per 9 grams CHO consumed * Oral Agents: Metformin 500 mg BID with meals Risk Factors for Insulin Resistance: * Steroids: none since yesterday AM * Recent Surgery: POD 2 s/p lumbar surgery * Diet: type 2 diabetes - ave of 50 gm CHO w/ each meal Assessment & Plan ASSESSMENT: 07/05/16 * Type 2 diabetic admitted today for surgical management of low back pain and bilateral neurogenic claudication; patient taken to OR for lumbar decompression/ fusion * She is managed w/ metformin monotherapy; however we will hold this until after surgery and resume when tolerating a diet and renal fxn has been assessed and adequate * Dexamethasone has been ordered post-op; high dose dexamethasone will likely lead to increased insulin resistance over then next several days - will treat this patient with Novolog correctional and prandial insulin. Will also add basal insulin this evening if BSGs exceed 180. * Additional BSG check overnight will be added to provide additional correctional insulin should the patient become hyperglycemic secondary to steroid administration * A1c will be added to lab draw tomorrow to determine most recent level of control 07/06/16 * Ms. Dang rec'd 10 units of insulin yesterday with BSGs ranging from 146-183 in the past 24 hrs * She did not require any Lantus last night b/c of her BSG * Expect BSGs may remain where they are until tomorrow AM once Decadron wears off * Will plan to continue current CF and CR as well as resume metformin - no contraindications to resuming * Can most likely remove CR tomorrow 07/07/16 * Patient rec'd 19 units of insulin yesterday, in addition to metformin that was restarted * BSGs have been stable and most likely does not need prandial coverage * Patient to be discharged likely tomorrow - see d/c recs below PLAN FOR INPATIENT GLYCEMIC CONTROL: * Continue Novolog ACHS * Goal 110-140 * CF 25 * REMOVE CR * Continue metformin 500 mg BID RECOMMENDATIONS FOR DISCHARGE: * A1c indicates excellent outpatient control; continue metformin Thank you.
[2016-07-07 15:16] VITALS: BP 121/76; PULSE 86; TEMP 36.7; O2SAT 97
[2016-07-07] MEDS: PRAMIPEXOLE DIHYDROCHLORIDE 0.5 MG TAB PO SCH ×2 (17:51→22:43)
[2016-07-07] MEDS ORDERED: NURSING DECISION MEDICATION ORDER SCH (20:00)
[2016-07-07] MEDS: GABAPENTIN 300 MG CAP PO SCH (21:49)
[2016-07-07] MEDS: ATORVASTATIN 20 MG TAB PO SCH (21:49)
[2016-07-07] MEDS: DOCUSATE SODIUM/SENNA 50/8.6MG TAB PO SCH (21:50)
[2016-07-07 22:53] VITALS: BP 119/74; PULSE 93; TEMP 36.5; O2SAT 94
[2016-07-08] MEDS: LEVOTHYROXINE 50 MCG TAB PO SCH (05:29)
[2016-07-08 06:33] VITALS: BP 128/75; PULSE 92; TEMP 36.5; O2SAT 93
[2016-07-08] MEDS: OXYCODONE HCL IR 5 MG TAB (IMMEDIATE RELEASE) PO PRN (07:56)
[2016-07-08] MEDS: INSULIN ASPART 100 UNITS/ML 3 ML PEN SC SCH (07:57)
[2016-07-08] MEDS: METFORMIN HCL 500 MG TAB PO SCH (07:57)
[2016-07-08] MEDS: LOSARTAN POTASSIUM 50 MG TAB PO SCH (07:58)
[2016-07-08] MEDS: POTASSIUM GLUCONATE 595 MG PO SCH (07:58)
--- NOTE | 2016-07-08 08:00 | Clinical Documentation Query ---
CLINICAL DOCUMENTATION QUERY 65-y/o female who has undergone L3-L5 spinal fusion. Per H&P in EMR this patient has no past medical history listed. However, Per med rec. this patient is on the follow medications for chronic conditions, "albuterol, Lipitor, Neurontin, Hydrochlorothiazide, Levothyroxine, Cozaar, Glucophage, & Metoprolol." In your clinical opinion is this patient being managed for: ( ) HTN ( ) Hyperlipidemia ( ) Type 2 DM ( ) Asthma ( ) Hypothyroidism ( ) Other explanation of clinical findings (Please Explain) ( ) Unable to determine (Please Define) ( ) Need to Discuss ( ) Not Agree The medical record reflects the following clinical findings, treatment, and risk factors. Clinical Indicators: As above. Treatment: continued on at an inpatient albuterol, Lipitor, Neurontin, Novolog, Levothyroxine, Cozaar, Glucophage, Troprol, Risk Factors: Age, Please clarify and document your clinical opinion in the progress notes and discharge summary. Terms such as "probable", "suspected", "likely", "questionable", "possible", or "still to be ruled out" are acceptable. IF IN AGREEMENT, YOU MUST DOCUMENT ABOVE DIAGNOSTIC STATEMENT IN DAILY PROGRESS NOTES AND DISCHARGE SUMMARY. This document is not part of the patient's record. Thank You, Marlon Otto, AUSTYN [phone]
[2016-07-08] MEDS: PANTOprazole SOD 40 MG TAB PO SCH (08:02)
[2016-07-08 08:03] VITALS: BP 115/77; PULSE 103
[2016-07-08] MEDS: METOPROLOL SUCC 25MG EXT REL TAB PO SCH (08:03)
--- NOTE | 2016-07-08 08:12 | Anesthesiology Progress Note ---
Anesthesia Post Op Note Date & Time Jul 08, 2016 at 08:11 Vital Signs Vital Signs Past 12 Hours Date Time Temp Pulse Resp B/P Pulse Ox O2 Delivery O2 Flow Rate FiO2 07/08/16 08:03 103 115/77 07/08/16 06:33 36.5 92 16 128/75 93 Room Air 07/08/16 00:15 Room Air 07/07/16 22:53 36.5 93 16 119/74 94 Room Air Notes Mental Status: alert / awake / arousable, participated in evaluation Pt Amnestic to Procedure: Yes Nausea / Vomiting: adequately controlled Pain: adequately controlled Airway Patency, RR, SpO2: stable & adequate BP & HR: stable & adequate Hydration State: stable & adequate Anesthetic Complications: no major complications apparent
[2016-07-08] MEDS ORDERED: RXC5 PO (09:20)
--- NOTE | 2016-07-08 09:21 | Discharge Instructions ---
Discharge Instructions Date of Service Jul 08, 2016. Admission Reason for Admission: Lumbar Spinal Stenosis Discharge Discharge Diagnosis / Problem: stenosis Discharge Goals Goal(s): Improve function Activity Recommendations Activity Limitations: per Instructions/Follow-up section . Instructions / Follow-Up Instructions / Follow-Up ACTIVITY RECOMMENDATIONS: SELF CARE INSTRUCTIONS AFTER THORACIC/LUMBAR FUSIONS 1. You may walk to your tolerance. It is good exercise for your legs and back. Expect some back and intermittent leg aches and pains. 2. You may perform "counter-top" level activities (make a sandwich, shelbi with a project, etc.). 3. No bending or lifting of more than 10 pounds or back twisting of any nature (roll like a log when turning in bed). 4. You may ride in a car for 20-30 minutes at a time. No driving until after your first visit with your doctor. 5. Frequent changes of position and restricting sitting to 30 minutes at a time will help limit the amount of back spasms and stiffness you may experience. 6. You may discontinue the use of ambulatory aids (cane, crutches, etc.) once your strength and confidence allow. 7. You may education trainer the shower and let water strike your incision when you arrive home at least once daily. Do not take a tub bath, sit in a hot tub or go into a swimming pool until after your first recheck in the office. SPECIAL CARE INSTRUCTIONS: VERY IMPORTANT TO READ AND REVIEW A. Your surgical incision has been closed with a cosmetic suture under the skin that will dissolve in about 6 weeks. In 14 days, you can use a pair of clean scissors and cut the suture that is left outside of the skin at the ends of your incision. 1. The small skin tapes can be removed 7 days after surgery if they have not fallen off by that point. 2. You may keep the wound open to air as much as possible to promote healing after post-op day number 5 unless told otherwise by your doctor. 3. If you think the wound looks like it is becoming infected (redness or worsening drainage) and/or you are experiencing fever, chill or worsening back pain and muscle spasms, contact the office so that we may evaluate you as soon as possible. B. Complications are uncommon, but please contact us if you have any signs or symptoms of: 1. wound infection (fever higher than 102.5 degrees F, redness, separation of wound, drainage, or increasing pain from the incision) 2. blood clots in legs (pain, swelling, redness and warmth in legs) 3. urinary tract infection (fever higher than 102.5 degrees F, burning upon urination or increased frequency of urination) 4. nerve problems (inability to walk on your toes or heels, numbness, loss of bowel or bladder control) 5. any other symptoms that concern you C. Please call the office at if you have any concerns or questions about your operation or recovery. D. No smoking! Smoking drastically decreases the chance of a solid fusion. E. Do not take any anti-inflammatory medications (Indocin, Advil, Motrin, Aspirin, Naprosyn, etc.) as these may inhibit the chance of a solid fusion. Tylenol is okay to take for pain. MANAGING PAIN AFTER SPINAL SURGERY 1. Narcotic medication is intended for short-term use and will be provided for surgical pain. Surgical pain usually lasts for a period of 4-6 weeks. Narcotic medication includes Percocet, Vicodin, Darvocet, Tylenol #3 or Lortab. 2. Longer-term pain is more appropriately treated with non-narcotic medication such as Tylenol ES. 3. Muscle spasm is not appropriately treated with narcotics. Muscle relaxers such as Soma, Flexeril or Skelaxin can be used along with Tylenol ES. 4. Remember that we all live with some "aches and pains". This is not unusual or uncommon after an injury or as we get older. a. Back pain is expected and may include muscle spasms for 4 to 6 weeks after surgery. The pain should gradually improve. If the pain worsens for no apparent reason, please contact the office. b. Intermittent leg pain may also be experienced and should not be concerned about unless it worsens for no apparent reason. If so, please contact the office. 5. We will provide appropriate medication within the normal guidelines of their prescribed use. We will also be very cautious and aware of potential abuse and extended duration of patients' medication needs. a. Pain medications are for your comfort and to assist with sleep and rest so that the tissue can heal. They are not provided in order to return to normal activity and should not be used through the day. To do so or worsening pain at night can result from ongoing tissue damage and development of tolerance to the prescribed medicine. 6. Please allow 2-3 days to process refills. Prescriptions will not be mailed but must be picked up at the office. FOLLOW UP VISIT: Keep your scheduled follow-up appointment. Any questions, please call the office at . Current Hospital Diet Patient's current hospital diet: Diabetes Type 2 Diet Discharge Diet Recommended Diet: Regular Diet Procedures Procedures Performed: L3-L4, L4-L5 Lumbar Laminectomy, Decompression, Pedicle Screw Fixation, Placement of Interbody Device; L3-L4, Posterolateral Fusion, Application of Allograft, Bone Morphogenetic Pending Studies Studies pending at discharge: no Laboratory Results Hemoglobin A1c Test 07/06/16 06:40 Range/Units Estimated Average Glucose 140 mg/dl Hemoglobin A1c 6.5 H 4.5-5.6 % Medical Emergencies . Who to Call and When: Medical Emergencies: If at any time you feel your situation is an emergency, please call 911 immediately. . Non-Emergent Contact Non-Emergency issues call your: Primary Care Provider . "Provider Documentation" section prepared by Mika Coleman. . VTE Core Measure Inpt VTE Proph given/why not?: Jocelyne Colmenares, SCD's
[2016-07-08 10:38] VITALS: BP 115/77; PULSE 103; TEMP 36.5; O2SAT 93
--- NOTE | 2016-07-08 23:58 | DISCHARGE SUMMARY ---
HOSPITAL COURSE: The patient underwent lumbar decompression and fusion, tolerated this well and taken to the orthopedic floor postoperatively. Postop day #1, she was up and ambulatory, progressed to postop day #2. On postop day #3, pain was controlled, DONNY drain decreased appropriately and subsequently discharged home. Discharge orders and instructions found on the chart for further review.
== END 2016-07-08 12:20 | disposition home or self-care (01) | DRG 460 ==
LOC: ENRESERVDT → ENRESERVTM → C.ACU 05:31 → C.MSW 07:30
PROVIDERS: ADMIT Orthopaedic Surgery Orthopaedic Surgery of the Spine; ATTEND Orthopaedic Surgery Orthopaedic Surgery of the Spine
PROC: 0SG1071 Fusion of 2 or more Lumbar Vertebral Joints with Autologous Tissue Substitute, Posterior Approach, Posterior Column, Open Approach (ICD-10-PCS; principal; 2016-07-05 07:45)
PROC: 0SG00AJ Fusion of Lumbar Vertebral Joint with Interbody Fusion Device, Posterior Approach, Anterior Column, Open Approach (ICD-10-PCS; principal; 2016-07-05 07:45)
PROC: 0ST20ZZ Resection of Lumbar Vertebral Disc, Open Approach (ICD-10-PCS; principal; 2016-07-05 07:45)
PROC: 0QP004Z Removal of Internal Fixation Device from Lumbar Vertebra, Open Approach (ICD-10-PCS; principal; 2016-07-05 07:45)
DX: M48.06 Spinal stenosis, lumbar region (principal); M96.0 Pseudarthrosis after fusion or arthrodesis; M43.16 Spondylolisthesis, lumbar region; Z98.1 Arthrodesis status

== ENCOUNTER 2020-10-25 08:04 | Inpatient (IN) ==
--- NOTE | 2020-10-03 13:11 | PAT Medication Instructions ---
Medication Instructions Date of Service October 03, 2020 Home Medications acetaminophen 500 mg capsule 500 mg PO Q6H PRN albuterol sulfate 90 mcg/actuation aerosol inhaler 1 inh INHALATION QID PRN atorvastatin 20 mg tablet 20 mg PO HS gabapentin 300 mg capsule 600 mg PO HS PRN hydrochlorothiazide 12.5 mg tablet 12.5 mg PO QAM ibuprofen 200 mg tablet (Advil) 200 mg PO Q6H PRN levothyroxine 1 tab PO QAM losartan 1 tab PO QAM metformin 500 mg tablet 1,000 mg PO BID metoprolol succinate 1 tab PO QAM omeprazole 20 mg capsule,delayed release 20 mg PO QAM polyethylene glycol 3350 17 gram/dose oral powder (Miralax) 17 g PO DAILY PRN potassium 99 mg tablet 99 mg PO QAM pramipexole 0.5 mg tablet 1 mg PO HS pramipexole 0.5 mg tablet 1 mg PO QPM ASK your surgeon for instructions ibuprofen 200 mg tablet (Advil) 200 mg PO Q6H PRN DO NOT take the morning of surgery hydrochlorothiazide 12.5 mg tablet 12.5 mg PO QAM losartan 1 tab PO QAM metformin 500 mg tablet 1,000 mg PO BID polyethylene glycol 3350 17 gram/dose oral powder (Miralax) 17 g PO DAILY PRN potassium 99 mg tablet 99 mg PO QAM Take morning of surgery With a small sip of water, OTHERWISE NOTHING TO EAT OR DRINK AFTER MIDNIGHT: acetaminophen 500 mg capsule 500 mg PO Q6H PRN (okay to take up to 4 hours prior to surgery if needed) albuterol sulfate 90 mcg/actuation aerosol inhaler 1 inh INHALATION QID PRN (use if needed; please bring rescue inhaler with you to hospital day of surgery if possible) levothyroxine 1 tab PO QAM metoprolol succinate 1 tab PO QAM omeprazole 20 mg capsule,delayed release 20 mg PO QAM Take evening before surgery acetaminophen 500 mg capsule 500 mg PO Q6H PRN (if needed) albuterol sulfate 90 mcg/actuation aerosol inhaler 1 inh INHALATION QID PRN (if needed) atorvastatin 20 mg tablet 20 mg PO HS gabapentin 300 mg capsule 600 mg PO HS PRN (if needed) metformin 500 mg tablet 1,000 mg PO BID polyethylene glycol 3350 17 gram/dose oral powder (Miralax) 17 g PO DAILY PRN (if needed) pramipexole 0.5 mg tablet 1 mg PO HS pramipexole 0.5 mg tablet 1 mg PO QPM Other Notes If you have any questions please call us at [phone] or [phone] or [phone] or [phone]
--- NOTE | 2020-10-04 08:53 | Anesthesiology Consultation ---
Date of Service October 04, 2020 Assessment & Plan (1) Encounter for pre-operative examination: - COVID screening: Per assessment on 10/04: Travel screen- Traveled to [facility] for camping in personal motor home from 09/29-10/03, Patient vaccinated. No known COVID-19 positive contacts or current COVID-19 related symptoms. Surgeon arranging preop COVID testing. Awaiting results. - Check BSG AM DOS Chart Review Chart Review: Acceptable Risk for Surgery (pending cardiology office visit note + available cardiac testing) and Patient seen in Pre Admission Testing Teaching & Discussion Pre-Anesthesia Teaching/Discussion Notes: Instructed NPO after midnight before surgery,except medications with 15 cc of water. Medication instructions provided according to the PAT guidelines. History Surgery Operation Date: 10/25/20 09:50 Proposed Procedures p L2-L3 Decompression Fusion L3-L5 Hardware Removal, Spinal Cord Monitoring - Mika Coleman DO Height/Weight Height: 5 ft 1 in Weight: 78.9 kg Allergies Allergy/AdvReac Type Severity Reaction Status Date / Time Penicillins Allergy Unknown Unknown Verified 10/03/20 09:10 lisinopril AdvReac Mild Cough Verified 10/03/20 16:10 Medications Home Medications Medication Instructions Recorded Confirmed Last Taken acetaminophen 500 mg capsule 500 mg PO Q6H PRN 10/03/20 10/03/20 Unknown albuterol sulfate 90 mcg/actuation 1 inh INHALATION QID PRN 10/03/20 10/03/20 Unknown aerosol inhaler atorvastatin 20 mg tablet 20 mg PO HS 10/03/20 10/03/20 Unknown gabapentin 300 mg capsule 600 mg PO HS PRN 10/03/20 10/03/20 Unknown hydrochlorothiazide 12.5 mg tablet 12.5 mg PO QAM 10/03/20 10/03/20 Unknown ibuprofen 200 mg tablet (Advil) 200 mg PO Q6H PRN 10/03/20 10/03/20 Unknown levothyroxine 1 tab PO QAM 10/03/20 10/03/20 Unknown losartan 1 tab PO QAM 10/03/20 10/03/20 Unknown metformin 500 mg tablet 1,000 mg PO BID 10/03/20 10/03/20 Unknown metoprolol succinate 1 tab PO QAM 10/03/20 10/03/20 Unknown omeprazole 20 mg capsule,delayed 20 mg PO QAM 10/03/20 10/03/20 Unknown release polyethylene glycol 3350 17 17 g PO DAILY PRN 10/03/20 10/03/20 Unknown gram/dose oral powder (Miralax) potassium 99 mg tablet 99 mg PO QAM 10/03/20 10/03/20 Unknown pramipexole 0.5 mg tablet 1 mg PO HS 10/03/20 10/03/20 Unknown pramipexole 0.5 mg tablet 1 mg PO QPM 10/03/20 10/03/20 Unknown Past Medical History Medical History Broken heart syndrome (~2018) "No muscle destruction", follows with Dr. Brooks ([place]) Chronic back pain Degenerative disc disease Diabetes mellitus, type 2 NIDDM GERD (gastroesophageal reflux disease) "Mild" H/O laryngeal spasm occasional laryngeal spasms s/p second partial thyroidectomy r/t "damage done to the vocal cords during the surgery" - resolved with "calming down" Hyperlipidemia Hypertension Hypothyroidism Myocardial Infarction Mild (2018) Obesity Osteoarthritis Restless leg syndrome Sleep apnea CPAP Thyroid nodule Reason for partial thyroidectomy x2 (benign) Exercise / Class Metabolic Activity III < 4 Walking/Shop/Light housework (one FS (no CP, no SOB) but possible SOB with hill) Past Family History Family History Other No family history of adverse response to anesthesia Past Surgical History Surgical History H/O hysterectomy with oophorectomy History of appendectomy History of back surgery L3-L5 laminectomy, decompression/fusion, L4-L5 hardware removal (07/08/16): Grade 3 view, MAC#3, ETT 7.0 at [facility] History of colonoscopy History of thyroidectomy, subtotal x2 History of tonsillectomy History of total hip arthroplasty Left History of total knee replacement Right Previous back surgery Insertion facet joint in [place] (clinical study) S/P epidural steroid injection Past Anesthesia History No Hx of Anesthesia Complications and No Family Hx of Anesthesia Complications History of PONV No Hx of PONV and No Hx of Motion Sickness Social History Smoking Status: Never smoker Do You Dip or Chew Tobacco: No Hx Alcohol Use: Yes alcohol intake frequency: holidays/special occasions only Hx Substance Use: No substance use type: does not use Review of Systems Patient denies chest pain, shortness of breath, dyspnea on exertion, fever, chills, cough, wheezing, palpitations. Physical Exam Vital Signs VITALS BP 151/86 (*pt reports she did not take morning meds) P 76 TEMP 98.0 SP02 96%RA RESP 16 PHYSICAL Full cervical extension range of motion. Full TMJ range of motion. TMD 3.5 finger breaths Mallampati Score 3 Dentition: missing molars Lungs: clear throughout to auscultation Cardiac: regular rate and rhythm, no murmurs noted Spine: normal Carotid arteries: negative bruit Extremities: no edema Lab Results Anesthesia Preop Results Results Anesthesia Widget: WBC 7.18 K/uL (4.8-10.8) 10/04/20 Hgb 12.4 g/dL (12.0-16.0) 10/04/20 Hct 37.5 % (37-47) 10/04/20 Plt 256 K/uL (130-400) 10/04/20 Na 137 mmol/L (136-145) 10/04/20 K 4.1 mmol/L (3.5-5.1) 10/04/20 Cl 103 mmol/L (98-107) 10/04/20 CO2 32 mmol/L (21-32) 10/04/20 BUN 29 mg/dl (7-18) H 10/04/20 Creat 0.81 mg/dl (0.6-1.2) 10/04/20 Glucose Level 182 mg/dl (70-99) H 10/04/20 PT 10.5 Seconds (9.0-12.0) 10/04/20 PTT 25.9 Seconds (21.0-31.0) 10/04/20 INR 1.0 (0.9-1.1) 10/04/20 HA1c 8.4 % (4.5-5.6) H 10/04/20 Urine Color Yellow 10/04/20 Urine Appearance Clear (Clear) 10/04/20 Urine pH 7.0 (4.5-7.5) 10/04/20 Urine Specific [place] 1.017 (1.000-1.030) 10/04/20 Urine Protein Negative (Negative) 10/04/20 Urine Glucose (UA) Trace (Negative) H 10/04/20 Urine Ketones Negative (Negative) 10/04/20 Urine Blood Negative (Negative) 10/04/20 Urine Nitrite Negative (Negative) 10/04/20 Urine Bilirubin Negative (Negative) 10/04/20 Urine Urobilinogen Negative (Negative) 10/04/20 Urine Leukocyte Esterase Negative (Negative) 10/04/20 Blood Type O Positive 10/04/20 Antibody Screen NEGATIVE 10/04/20 Lab Comments: Surgeon's office made aware of elevated hgba1c* Testing Electrocardiogram Date: 10/04/20 NSR at 74bpm. LAD. RBBB. No significant change compared to 10/05/15 per jailer chief review. Chest X-Ray Date: 10/04/20 FINDINGS: The cardiac and mediastinal contours are normal. There is no evidence of focal pulmonary consolidation. There is no evidence of failure. No pleural effusions are visualized.[Degenerative changes are present within the thoracic spine with 2 levels of prominent discogenic and plate sclerosis. There are postsurgical changes within the lumbar spine. IMPRESSION: No active disease in the chest. Stress Test Date: 12/14/14 No evidence of myocardial ischemia or scar. LVEF 55-60%. NS MV thickening. Trace to mild MR.
[~2020-10-25 08:04] MED LIST changes: -ACET-1138 PO; +ACETAMINOPHEN 500 MG TAB PO SCH; -ALBUAER19 INH; -ATOR-22 PO; +CeleBREX 200 MG CAP PO SCH; -ETOD400T PO; -GABA-113 PO; +GABAPENTIN 300 MG CAP PO SCH; -GLC/500 PO; -HYDR12.55 PO; -LEVO50TA6 PO; -LOSA1TAB38 PO; +LR 15ML/HR IV SCH; -METO25TA3 PO; -OMEP40CA PO; -OXYM0.056 INTNAS; -POTACAP PO; -PRAM0.5T10 PO; -SNK PO; -TRAM-10 PO
[2020-10-25] MEDS ORDERED: MIDAZOLAM HCL 1 MG/ML 2ML VIAL ONE (08:33)
[2020-10-25] MEDS ORDERED: LIDOCAINE 2% 2 ML VIAL/AMP(20MG/ML) INFIL ONE (08:33)
[2020-10-25] MEDS ORDERED: fentaNYL citrate 100 MCG/2 ML VIAL ONE ×2 (08:33→10:18)
[2020-10-25] MEDS ORDERED: ROCURONIUM BROMIDE 10 MG/ML 5 ML VIAL IV ONE (08:33)
[2020-10-25] MEDS ORDERED: PROPOFOL IV EMULSION 10 MG/ML 20 ML VIAL IV ONE (08:33)
--- NOTE | 2020-10-25 09:26 | History & Physical Bridge Note ---
Date of Service October 25, 2020 History & Physical Bridge Note I have examined the patient, reviewed the History & Physical and in the interval since the performance of the History & Physical I have noted the following changes of clinical significance: no changes noted
--- NOTE | 2020-10-25 09:27 | History & Physical Report ---
Date of Service October 25, 2020 Assessment & Plan (1) Lumbar stenosis with neurogenic claudication: Plan: L2-L3 decompression fusion, L3-L5 hardware removal History of Present Illness Chief Complaint: Back and leg pain Primary Care Provider: Zenia Emerson MD This is a 69-year-old female known to me this presents with chronic persistent back and leg pain after failing course of nonoperative care she is here for surgical invention. Allergies Allergy/AdvReac Type Severity Reaction Status Date / Time Penicillins Allergy Unknown Unknown Verified 10/25/20 08:40 lisinopril AdvReac Mild Cough Verified 10/25/20 08:40 Home Medications Medication Instructions Recorded Confirmed Type acetaminophen 500 mg capsule 500 mg PO Q6H PRN 10/03/20 10/25/20 History albuterol sulfate 90 mcg/actuation 1 inh INHALATION QID PRN 10/03/20 10/25/20 History aerosol inhaler atorvastatin 20 mg tablet 20 mg PO HS 10/03/20 10/25/20 History gabapentin 300 mg capsule 600 mg PO HS PRN 10/03/20 10/25/20 History hydrochlorothiazide 12.5 mg tablet 12.5 mg PO QAM 10/03/20 10/25/20 History ibuprofen 200 mg tablet (Advil) 200 mg PO Q6H PRN 10/03/20 10/25/20 History levothyroxine 1 tab PO QAM 10/03/20 10/25/20 History losartan 1 tab PO QAM 10/03/20 10/25/20 History metformin 500 mg tablet 1,000 mg PO BID 10/03/20 10/25/20 History metoprolol succinate 1 tab PO QAM 10/03/20 10/25/20 History omeprazole 20 mg capsule,delayed 20 mg PO QAM 10/03/20 10/25/20 History release polyethylene glycol 3350 17 17 g PO DAILY PRN 10/03/20 10/25/20 History gram/dose oral powder (Miralax) potassium 99 mg tablet 99 mg PO QAM 10/03/20 10/25/20 History pramipexole 0.5 mg tablet 1 mg PO HS 10/03/20 10/25/20 History pramipexole 0.5 mg tablet 1 mg PO QPM 10/03/20 10/25/20 History Past Med/Surg History Medical History Broken heart syndrome (~2018) "No muscle destruction", follows with Dr. Brooks ([place]) Chronic back pain Degenerative disc disease Diabetes mellitus, type 2 NIDDM GERD (gastroesophageal reflux disease) "Mild" H/O laryngeal spasm occasional laryngeal spasms s/p second partial thyroidectomy r/t "damage done to the vocal cords during the surgery" - resolved with "calming down" Hyperlipidemia Hypertension Hypothyroidism Myocardial Infarction Mild (2018) Obesity Osteoarthritis Restless leg syndrome Sleep apnea CPAP Thyroid nodule Reason for partial thyroidectomy x2 (benign) Surgical History H/O hysterectomy with oophorectomy History of appendectomy History of back surgery L3-L5 laminectomy, decompression/fusion, L4-L5 hardware removal (07/08/16): Grade 3 view, MAC#3, ETT 7.0 at [facility] History of colonoscopy History of thyroidectomy, subtotal x2 History of tonsillectomy History of total hip arthroplasty Left History of total knee replacement Right Previous back surgery Insertion facet joint in [place] (clinical study) S/P epidural steroid injection Family History Other No family history of adverse response to anesthesia Social History Smoking Status: Never smoker Second Hand Exposure: Yes (in the past); Do You Dip or Chew Tobacco: No; Tobacco Cessation Education Requested by Patient: No Hx Alcohol Use: Yes Hx Substance Use: No Preferred Language: Montenegrin Communication Ability: Effective Hvac Engineering Technician Required: No Beliefs That Will Affect Care: None Current Living Situation: Spouse Other Information That Helps Us Care for You: No Feels Safe at Home: Yes Safety Concerns: Feels Safe At This Time Assistive Devices: Cane, Glasses and Walker Physical Exam Physical Exam: Patient is alert and oriented Heart regular in rhythm Lungs clear to auscultation Results & Data ([facility]) Vital Signs (Past 12 Hours) Vital Signs Temp Pulse Resp BP Pulse Ox 10/25/20 08:49 36.4 C L 77 20 152/78 H 97
[2020-10-25] MEDS ORDERED: BUPIVACAINE 0.5 % 5 MG/1 ML MPF 30ML VIAL ONE (09:33)
[2020-10-25] MEDS ORDERED: EPINEPHrine INJ 1 MG/ML AMP ONE (09:33)
[2020-10-25] MEDS ORDERED: CLINDAMYCIN 600 MG/54 ML D5W IV ONE (09:35)
[2020-10-25] MEDS ORDERED: GLYCOPYRROLATE 0.2 MG/ML VIAL ONE (10:04)
[2020-10-25] MEDS ORDERED: KETAMINE 50 MG/5 ML SYRINGE ONE (10:04)
[2020-10-25] MEDS ORDERED: ATROPINE SULFATE 0.1 MG/ML 10ML SYR IV PRN (10:13)
[2020-10-25] MEDS ORDERED: ePHEDrine sulfate 50 MG/ML AMP IV PRN (10:13)
[2020-10-25] MEDS ORDERED: ONDANSETRON INJ 2 MG/ML 2 ML VIAL IV PRN ×2 (10:13→14:28)
[2020-10-25] MEDS ORDERED: HYDROmorphone INJ 1 MG/ML SYRINGE IV PRN ×2 (10:13→14:28)
[2020-10-25] MEDS ORDERED: FLOSEAL HEMOSTATIC MATRIX 10ML TOP ONE (10:45)
--- NOTE | 2020-10-25 11:47 | Operative Report ---
Post Operative Report Pre & Post Diagnosis Operation Date: 10/25/20 10:05 Pre-Op Diagnosis: Spinal Stenosis, Lumbar Region with Neurogenic Claudication Post-Op Diagnosis: Spinal Stenosis, Lumbar Region with Neurogenic Claudication I identified the patient and participated in the time-out.: Yes Procedure Operation Date: 10/25/20 10:05 Actual Procedures #1 Removal of posterior instrumentation L3-4 L4-5. #2 exploration of fusion L3-4 L4-5. #3 lumbar decompression with bilateral medial facetectomies and foraminotomies L1-L2 3. #4 posterior spinal fusion L2-3. #5 placement posterior instrumentation L2-L3. #6 interbody fusion L2-L3. #7 placement peek cage 10 x 22 mm at L2-L3. #8 placement locally harvested morselized autograft and posterior gutters. #9 placement infuse collagen sponge, master graft in the posterior lateral gutters and I factor in the interbody space. Surgeon Mika Coleman, Template Worker Carolyn Hanks Estimated Blood Loss 150 Findings See Below Patient is 5 foot 1 inches tall weighing 94 kg with a BMI of 39. Patient's body habitus did contribute to significant technical difficulty requiring her deepest retractors longus instruments noted in order to perform her procedure. Has had at least 25% increase time. Specimens None Indications This is a 69-year-old female who presents above-mentioned diagnosis after failing extensive course of nonoperative care she is here for surgical invention. Description of Procedure Patient was met with identified informed consent obtained. Patient was then taken to the operative suite underwent a patient placed in a prone position the Aristides table Julianne frame. All bony prominences well-padded eyes inspected to ensure there is no external proximal spine. This point lumbar spine was prepped and draped in a sterile fashion. Sharp dissection with the assistance of Bovie cautery was performed down to and exposing the lamina and transverse process of L2 and instrumentation at L3-L4 and L5. Then proceeded move the hardware bilaterally explore the fusion mass noting it to be in mature and intact. Informed complete laminectomy L2 partial laminectomy L1 including bilateral medial facetectomies and foraminotomies addressing severe spinal stenosis. Pedicle screws were then placed in L2 and L3 bilaterally with assistance of fluoroscopy and the proper sized jax placed. By way of a transforaminal approach on the right the discectomy was performed endplates curetted to subcortically bone and a 10 x 22 mm peek cage filled with I factor tapped in position. The rods were then locked in final position bilaterally. The transverse processes of L2 and L3 burred to subcortical bleeding bone. Infuse collagen sponge master graft and local autograft placed in the posterior gutters. 15 round DONNY drain inserted. The incision was then closed with 1 Vicryl the fascia 2-0 Vicryl subcutaneously and 4 Monocryl for final skin closure. Steri-Strip sterile dressings placed. Patient will continue PACU stable condition. Please note spinal cord monitoring was utilized at the procedure no changes noted. Lastly Carolyn Hanks was present at the entire surgery involved the patient positioning complex portions of the surgery and final skin closure. I attest to the content of the Intraoperative Record and any orders documented therein. Any exceptions are noted below.
[2020-10-25] MEDS: fentaNYL citrate 100 MCG/2 ML VIAL IV PRN ×2 (12:25→12:30)
[2020-10-25] MEDS ORDERED: NEOSTIGMINE METHYLSULFATE 1 MG/ML 10ML VIAL ONE (12:57)
[2020-10-25] MEDS ORDERED: DEXAMETHASONE SOD INJ 4 MG/ML VIAL ONE (12:57)
[2020-10-25] MEDS ORDERED: ONDANSETRON INJ 2 MG/ML 2 ML VIAL ONE (12:57)
--- NOTE | 2020-10-25 13:07 | Anesthesiology Progress Note ---
Date of Service October 25, 2020 Anesthesia Post Procedure Vital Signs Vital Signs: Temp Pulse Pulse Resp BP Pulse Ox 10/25/20 12:50 36.4 C L 58 L 13 129/73 95 10/25/20 12:40 60 12 131/71 94 10/25/20 12:30 63 13 118/74 95 10/25/20 12:20 67 12 118/70 94 10/25/20 12:10 65 16 125/77 95 10/25/20 12:01 36.5 C 67 14 154/89 H 94 10/25/20 08:49 36.4 C L 77 20 152/78 H 97 Pain Intensity Back: Pain Intensity: 3 Transfer of Care Handoff Completed per policy Notes Mental Status: alert / awake / arousable and participated in evaluation Patient Amnestic to Procedure: Yes Nausea / Vomiting: adequately controlled Pain: adequately controlled Airway Patency, RR, SpO2: stable & adequate BP & HR: stable & adequate Hydration State: stable & adequate Anesthetic Complications: no major complications apparent and Pt Satisfied with anesthetic care
--- NOTE | 2020-10-25 13:13 | Fluoroscopy Report ---
FL lumbar spine 2-3V CLINICAL HISTORY: L2-L3 DECOMPRESSION AND FUSION/L3-L5 HW REMOVAL COMPARISON STUDY: None. FLUOROSCOPY TIME: 14 seconds. FINDINGS: 2 fluoroscopic spot images of the lumbar spine demonstrate posterior decompression and fusi on with pedicle screws and rods. The exact location is difficult to identify due to the spot image bu t is likely at the L2-L3 level. The hardware appears intact. IMPRESSION: Fluoroscopy provided for L2-L3 posterior decompression and fusion. ACT 112: Negative or not required by law. Electronically signed by: Carlos Morrison M.D. 10/25/2020 1:12 PM
[2020-10-25] MEDS ORDERED: diphenhydrAMINE Capsule 25 MG CAP PO PRN (14:28)
[2020-10-25] MEDS ORDERED: ACETAMINOPHEN 1,000 MG/100 ML VIAL IV PRN (14:28)
[2020-10-25] MEDS ORDERED: hydrOXYzine HCl 25 MG TAB PO PRN (14:28)
[2020-10-25] MEDS ORDERED: bisacodyL 10 MG SUPP PR PRN (14:28)
[2020-10-25] MEDS ORDERED: DO NOT ADMINISTER PNEUMOCOCCAL VACCINE PRN (14:28)
[2020-10-25] MEDS ORDERED: NON-FORMULARY MEDICATION (Acetaminophen 500 mg Capsule) PO PRN (14:28)
[2020-10-25] MEDS ORDERED: LORazepam 0.5 MG TAB PO PRN (14:28)
[2020-10-25] MEDS ORDERED: NALOXONE HCL 0.4 MG/1 ML VIAL/CARP IV PRN (14:28)
[2020-10-25] MEDS ORDERED: PHARMACY GLYCEMIC MGMT CONSULT PRN (14:28)
[2020-10-25] MEDS ORDERED: PROMETHAZINE HCL 12.5 MG in SODIUM CHLORIDE 0.9% 50 ML IV PRN (14:28)
[2020-10-25] MEDS ORDERED: MAGNESIUM HYDROXIDE SUSP 30 ML UDC PO PRN (14:28)
[2020-10-25] MEDS ORDERED: FAMOTIDINE 20 MG TAB PO PRN (14:28)
[2020-10-25] MEDS ORDERED: LORazepam 0.5 MG/1 ML VIAL IV PRN (14:28)
[2020-10-25] MEDS ORDERED: METOCLOPRAMIDE HCL INJ 5 MG/ML 2 ML VIAL IV PRN (14:28)
[2020-10-25] MEDS ORDERED: SOD PHOSPHATE/SOD BIPHOSPHATE ENEMA 132 ML BTL PR PRN (14:28)
[2020-10-25] MEDS ORDERED: ALUMINUM/MAGNESIUM SUSP 30 ML UDC PO PRN (14:28)
[2020-10-25] MEDS ORDERED: DO NOT ADMINISTER FLU VACCINE PRN (14:28)
[2020-10-25] MEDS ORDERED: traMADol HCL 50 MG TABLET PO PRN (14:28)
[2020-10-25] MEDS ORDERED: HYDROmorphone INJ 0.5 MG/0.5 ML SYR IV PRN (14:28)
[2020-10-25] MEDS ORDERED: ONDANSETRON 4 MG OD TAB PO PRN (14:28)
[2020-10-25] MEDS: SODIUM CHLORIDE 0.9% 1000ML 1,000 ML IV SCH ×2 (14:53→23:58)
[2020-10-25] MEDS ORDERED: GLUCOSE 10 TABS/TUBE PO PRN (15:00)
[2020-10-25] MEDS ORDERED: GLUCOSE 40% GEL 15 GM TUBE PO PRN (15:00)
[2020-10-25] MEDS ORDERED: DEXTROSE 50% 50 ML SYRINGE IV PRN (15:00)
[2020-10-25] MEDS ORDERED: CARBOHYDRATES FOR HYPOGLYCEMIA PO PRN (15:00)
[2020-10-25] MEDS ORDERED: GLUCAGON FOR INJ 1 MG VIAL SQ PRN (15:00)
[2020-10-25] MEDS: oxyCODONE HCL IR 5 MG TAB (IMMEDIATE RELEASE) PO PRN ×3 (15:23→23:58)
--- NOTE | 2020-10-25 16:25 | Internal Medicine Consult Note ---
Date of Consultation October 25, 2020 Assessment & Plan (1) Lumbar stenosis with neurogenic claudication: (2) Lumbar degenerative disc disease: (3) Hypothyroidism: (4) Hyperlipidemia: (5) Obesity: (6) Hypertension: (7) Sleep apnea: (8) Restless leg syndrome: (9) GERD (gastroesophageal reflux disease): (10) Diabetes mellitus, type 2: (11) Chronic back pain: (12) Broken heart syndrome: Resume Post Op Care per Surgery Protocol Incentive Spirometry 10x per Hour Resume Relative Home Meds Where Appropriate PT/OT with appropriate fall precautions Transition from IV to PO Pain control DVT Prophylaxis Per Surgery Protocol Monitor Daily Labs History of Present Illness Reason for Consultation: medical management Requesting Physician: Dr Coleman Attending Physician: Mika Coleman, DO History of Present Illness 69 yo femal c PMH of [place] (Broken Heart Syndrome), Chronic low back pain, GERD, HLD, HTN, Hypothyroid, CAD, AMI, OA, RLS, OSAS, and obesity who had spinal surgery in [place] a few years back, the Dr Coleman remove a fault Facet joint to correct a problem she was having in the past as well. A year ago she picked up her GGrandson and she began to neurogenic claudication symptoms. She tied a year of injstions, PT, Meds etc, but conservative therapy failed so Dr Coleman took her to the OR today for her Spinal Stenosis, Lumbar Region with Neurogenic Claudication he performed, Removal of posterior instrumentation L3-4 L4-5, exploration of fusion L3-4 L4-5, lumbar decompression with bilateral medial facetectomies and foraminotomies L1-L2 3, posterior spinal fusion L2-3, placement posterior instrumentation L2-L3, interbody fusion L2-L3, placement peek cage 10 x 22 mm at L2-L3, placement locally harvested morselized autograft and posterior gutters, and placement infuse collagen sponge, master graft in the posterior lateral gutters and I factor in the interbody space. I saw her in her room post op where she was resting comfortably. Allergies Allergy/AdvReac Type Severity Reaction Status Date / Time Penicillins Allergy Unknown Unknown Verified 10/25/20 08:40 lisinopril AdvReac Mild Cough Verified 10/25/20 08:40 Home Medications Medication Instructions Recorded Confirmed Type acetaminophen 500 mg capsule 500 mg PO Q6H PRN 10/03/20 10/25/20 History albuterol sulfate 90 mcg/actuation 1 inh INHALATION QID PRN 10/03/20 10/25/20 History aerosol inhaler atorvastatin 20 mg tablet 20 mg PO HS 10/03/20 10/25/20 History gabapentin 300 mg capsule 600 mg PO HS PRN 10/03/20 10/25/20 History hydrochlorothiazide 12.5 mg tablet 12.5 mg PO QAM 10/03/20 10/25/20 History ibuprofen 200 mg tablet (Advil) 200 mg PO Q6H PRN 10/03/20 10/25/20 History metformin 500 mg tablet 1,000 mg PO BID 10/03/20 10/25/20 History omeprazole 20 mg capsule,delayed 20 mg PO QAM 10/03/20 10/25/20 History release polyethylene glycol 3350 17 17 g PO DAILY PRN 10/03/20 10/25/20 History gram/dose oral powder (Miralax) potassium 99 mg tablet 99 mg PO QAM 10/03/20 10/25/20 History pramipexole 0.5 mg tablet 0.5 mg PO QPM 10/03/20 10/25/20 History pramipexole 0.5 mg tablet See Rx Instructions .ROUTE .COMPLEX 10/03/20 10/25/20 History levothyroxine 25 mcg tablet 25 mcg PO DAILY 10/25/20 10/25/20 History (Synthroid) losartan 100 mg tablet 100 mg PO DAILY 10/25/20 10/25/20 History metoprolol succinate 100 mg 100 mg PO DAILY 10/25/20 10/25/20 History tablet,extended release 24 hr Patient History Medical History (Updated 10/25/20 @ 20:20 by Vito Rubio DO) Broken heart syndrome (~2018) "No muscle destruction", follows with Dr. Brooks ([place]) Chronic back pain Degenerative disc disease Diabetes mellitus, type 2 NIDDM GERD (gastroesophageal reflux disease) "Mild" H/O laryngeal spasm occasional laryngeal spasms s/p second partial thyroidectomy r/t "damage done to the vocal cords during the surgery" - resolved with "calming down" Hyperlipidemia Hypertension Hypothyroidism Myocardial Infarction Mild (2018) Obesity Osteoarthritis Restless leg syndrome Sleep apnea CPAP Thyroid nodule Reason for partial thyroidectomy x2 (benign) Surgical History H/O hysterectomy with oophorectomy History of appendectomy History of back surgery L3-L5 laminectomy, decompression/fusion, L4-L5 hardware removal (07/08/16): Grade 3 view, MAC#3, ETT 7.0 at [facility] History of colonoscopy History of thyroidectomy, subtotal x2 History of tonsillectomy History of total hip arthroplasty Left History of total knee replacement Right Previous back surgery Insertion facet joint in [place] (clinical study) S/P epidural steroid injection Family History Other No family history of adverse response to anesthesia Social History Smoking Status: Never smoker Second Hand Exposure: Yes (in the past); Do You Dip or Chew Tobacco: No; Tobacco Cessation Education Requested by Patient: No Hx Alcohol Use: Yes Hx Substance Use: No Preferred Language: Bengali Communication Ability: Effective Director Call Center Sales Required: No Beliefs That Will Affect Care: None Current Living Situation: Spouse Other Information That Helps Us Care for You: No Feels Safe at Home: Yes Safety Concerns: Feels Safe At This Time Assistive Devices: Cane, Glasses and Walker Review of Systems Review of Systems: ROS-No Headache, No Visual Changes, No Nausea, No Vomiting, No Fever, No Chills, No Neck Pain or Stiffness, No Chest Pain, No Palpitations, No SOB, No AL, No Cough, No Sputum, No Wheezing, No Abdominal Pain, No Diarrhea, No Hematemesis, No Hemoptysis, No Unexpected Weight Loss, No Flank pain, No Melena, No Hematochezia, No Frequency, No Urgency, No Burning, No Hematuria, No Rashes, No Diaphoresis. Appetite is Normal, Sore Back, Leg pain gone Physical Exam Gen-AAO x 3, NAD, Afebrile, Pleasant Head-NCAT, EOMI, PERRLA, Anicteric Sclera, No Posterior Pharyngeal Erythema Neck-Supple, No JVD, No Thyromegaly, No Masses, No LAD, No Bruits Lungs-Clear to Auscultation Bilaterally, No Rales, No Rhonchi, No Wheezing, No Crepitus Chest-No S4, +S1, +S2, No S3, No Murmurs, No Rubs, No Gallops, No Ectopy Abdomen-Soft, Bowel Sounds Present, Non Tender, Non Distended, No Hepatomegaly, No Splenomegaly, No Palpable Masses, No Rebound, No Rigidity, No Guarding Musculoskeletal-Full Range of Motion Bilaterally, No CVAT Extremities-No Cyanosis, No Clubbing, No Edema Nuero-Cranial Nerves II-XII grossly intact, Motor WNL, DTRs WNL, Strength WNL, Non Focal Psych-Normal Mood Results & Data ([facility]) Vital Signs (Past 12 Hours) Vital Signs Temp Pulse Pulse Resp BP Pulse Ox 10/25/20 16:21 70 18 123/74 94 10/25/20 15:00 36.3 C L 65 16 111/71 90 10/25/20 14:05 36.4 C L 69 18 138/77 94 10/25/20 13:35 36.5 C 69 20 135/77 92 10/25/20 12:50 36.4 C L 58 L 13 129/73 95 10/25/20 12:40 60 12 131/71 94 10/25/20 12:30 63 13 118/74 95 10/25/20 12:20 67 12 118/70 94 10/25/20 12:10 65 16 125/77 95 10/25/20 12:01 36.5 C 67 14 154/89 H 94 10/25/20 08:49 36.4 C L 77 20 152/78 H 97 Laboratory Results Current Diagnoses Spinal stenosis, lumbar region with neurogenic claudication (10/25/20) Encounter for other preprocedural examination (10/25/20) Allergies Penicillins Allergy (Unknown, Verified 10/25/20 08:40) Unknown lisinopril Adverse Reaction (Mild, Verified 10/25/20 08:40) Cough Height/Weight/Isolation Height 5 ft 1 in Weight 94.092 kg
[2020-10-25] MEDS ORDERED: NovoLIN-N (NPH) PER UNIT CHARGE SQ SCH (16:30)
[2020-10-25] MEDS: CLINDAMYCIN 600 MG in DEXTROSE 5% 50 ML IV SCH (18:22)
[2020-10-25] MEDS: INSULIN ASPART 100 UNITS/ML 3 ML PEN SC SCH ×2 (18:24→20:21)
[2020-10-25] MEDS: PRAMIPEXOLE DIHYDROCHLO 0.5 MG TAB PO SCH ×2 (18:27→20:23)
[2020-10-25] MEDS: ATORVASTATIN 20 MG TAB PO SCH (20:23)
[2020-10-25] MEDS: DOCUSATE SODIUM/SENNA 50/8.6MG TAB PO SCH (20:23)
[2020-10-26] MEDS: INSULIN ASPART 100 UNITS/ML 3 ML PEN SC SCH ×6 (00:02→21:22)
[2020-10-26] MEDS: CLINDAMYCIN 600 MG in DEXTROSE 5% 50 ML IV SCH (02:15)
[2020-10-26] MEDS: LEVOTHYROXINE SODIUM 25 MCG TABLET PO SCH (06:09)
[2020-10-26] MEDS: POLYETHYLENE (MIRALAX) 17 GM PACK PO SCH ×3 (06:09→17:47)
[2020-10-26] MEDS: hydroCHLOROthiazide 25 MG TAB PO SCH (07:35)
[2020-10-26] MEDS: PANTOprazole 40 MG TAB PO SCH (07:36)
[2020-10-26] MEDS: LOSARTAN POTASSIUM 50 MG TAB PO SCH (07:36)
[2020-10-26] MEDS: METOPROLOL SUCC 50MG EXT REL TAB PO SCH (07:36)
[2020-10-26] MEDS: SODIUM CHLORIDE 0.9% 1000ML 1,000 ML IV SCH (08:51)
[2020-10-26] MEDS: oxyCODONE HCL IR 5 MG TAB (IMMEDIATE RELEASE) PO PRN ×4 (08:52→21:13)
[2020-10-26] MEDS ORDERED: NON-FORMULARY MEDICATION (Potassium 99 mg Tablet) PO SCH (09:00)
[2020-10-26 09:12] LABS: Basophils # (auto) 0.01 K/uL (0-0.2); Basophils % (auto) 0.1 %; Hematocrit (blood only) 30.5 % (37-47); Immature Granulocytes # (auto) 0.02 K/uL (0.00-0.02); Immature Granulocytes % (auto) 0.2 %; Lymphocytes # (auto) 1.63 K/uL (1.2-3.4); Lymphocytes % (auto) 16.1 %; Mean Corpuscular Hemoglobin 28.4 pg (25-34); Mean Corpuscular Hgb Conc 32.8 g/dL (32-36); Mean Corpuscular Volume 86.6 fL (80-100); Mean Platelet Volume 11.5 fL (7.4-10.4); Monocytes # (auto) 0.91 K/uL (0.11-0.59); Neutrophils # (auto) 7.57 K/uL (1.4-6.5); Neutrophils % (auto) 74.6 %; Platelet Count 238 K/uL (130-400); RDW Coefficient of Variation 13.6 % (11.5-14.5); RDW Standard Deviation 43.3 fL (36.4-46.3); Red Blood Count 3.52 M/uL (4.2-5.4); White Blood Count 10.14 K/uL (4.8-10.8)
[2020-10-26] MEDS: INSULIN GLARGINE SOLOSTAR 100 UNITS/ML 3 ML PEN SC SCH (09:31)
[2020-10-26 09:51] LABS: BUN Creatinine Ratio 19.9 (10-20); Calcium 8.5 mg/dl (8.5-10.1); Creatinine Clr Calc Pharmacy 70.2 ml/min; Est GFR (Non-African American) 77.7 ml/min; Potassium 3.7 mmol/L (3.5-5.1)
--- NOTE | 2020-10-26 10:25 | Pharmacy Report ---
Pharmacy Glycemic Short Note 2 - Date of Service October 26, 2020 - Glycemic Short BSG Results (Last 24 hours): 10/25/20 10/25/20 10/25/20 13:07 17:44 20:18 Glucose POC Glucose 189 H 218 H 269 H 10/26/20 10/26/20 10/26/20 00:01 08:34 08:39 Glucose 158 H POC Glucose 171 H 164 H OUTPATIENT ANTIDIABETIC REGIMEN: * A1c = 8.4% * metformin 1000 mg PO BID ASSESSMENT: * Cindy is POD #1 s/p spinal surgery * She received 51 units of SQ insulin yesterday * 35 units of NPH (for coverage of dexamethasone IV given ru-op) * 16 uits of novolog * BSGs: 160, 189, 218, 269 mg/dL * Fasting BSG of 164 mg/dL is above goal but is consistent with A1c of 8.4%. I will start low dose long acting basal insulin. * Post prandial BSGs are anticipated to be better today as dexamethasone effect wares off. Will tighten carb coverage slightly. PLAN FOR INPATIENT GLYCEMIC CONTROL: * Hold outpatient oral diabetes medications * Basal insulin * Lantus 10 units SQ this morning * Reassess further dosing on 10/27 am * Bolus insulin * NovoLog per scale ACHS or Q6hrs while NPO * Goal Range: Low 110 mg/dL - High 140 mg/dL * Correction Factor: 20 mg/dL/unit * Nutritional / Prandial insulin per carb ratio of 1 unit per 6 grams CHO consumed PLAN FOR DISCHARGE: A1c of 8.4% Consider dual combination therapy - metformin plus one of the following: * GLP-1 receptor agonist (liraglutide, semaglutide) -> minimize weight gain/promotes weight loss, low risk of hypoglycemia, decreases major adverse cardiovascular events * SGLT2 inhibitor (empagliflozin, canagliflozin) -> minimize weight gain/promotes weight loss, low risk of hypoglycemia, decreases major adverse cardiovascular events * sulfonylurea --> low cost but can cause weight gain and risk of hypoglycemia Support Patient Self-Management * Healthy Lifestyle (diet, exercise, and smoking cessation) * Disease self-management (SMBG) * Prevention of complications (BP, Lipid goals, Immunizations) * Consider outpatient Diabetes Self-Management Education & Support
--- NOTE | 2020-10-26 12:17 | Orthopedic Progress Note ---
Date of Service October 26, 2020 Assessment & Plan (1) Lumbar stenosis with neurogenic claudication: Plan: This time continue physical therapy monitor DONNY operatively discharge home in the next few days. Admission and Anticipated Discharge Date Admission Date: October 25, 2020 Subjective Back pain controlled leg symptoms markedly improved Physical Exam Physical Exam: Patient is good strength testing appears comfortable. Results & Data ([facility]) Vital Signs (Past 12 Hours) Vital Signs Temp Pulse Resp BP Pulse Ox 10/26/20 07:31 36.6 C 67 18 129/76 94 10/26/20 02:09 36.6 C 67 18 108/64 96
--- NOTE | 2020-10-26 15:59 | Hospitalist Progress Note ---
Date of Service October 26, 2020 Assessment & Plan (1) Lumbar stenosis with neurogenic claudication: Plan: Status post L2-L3 decompression fusion, L3-L5 hardware removal Management will be as per orthopedic surgeon She has minimal pain without radiation We will monitor labs (2) Lumbar degenerative disc disease: Plan: As above (3) Hypothyroidism: Plan: Continue supplement (4) Hyperlipidemia: Plan: Continue statin (5) Obesity: (6) Hypertension: Plan: Blood pressure is well controlled and continue current medication (7) Sleep apnea: Plan: Continue any CPAP at night if she has been using it as an outpatient (8) Restless leg syndrome: Plan: Continue pramipexole (9) GERD (gastroesophageal reflux disease): (10) Diabetes mellitus, type 2: Plan: SSI We will hold Metformin (11) Chronic back pain: (12) Broken heart syndrome: Plan: Resume Post Op Care per Surgery Protocol Incentive Spirometry 10x per Hour Resume Relative Home Meds Where Appropriate PT/OT with appropriate fall precautions Transition from IV to PO Pain control DVT Prophylaxis Per Surgery Protocol Monitor Daily Labs Admission and Anticipated Discharge Date Admission Date: October 25, 2020 Subjective 10/26/2020 The patient was seen and examined in medical floor She is a status post lumbar back surgery Sitting on a chair with minimal pain at the back Denies any other symptoms Review of Systems Review of Systems: All systems reviewed and are unremarkable except as noted below Musculoskeletal: Back pain status post lumbar decompression and fusion Physical Exam Physical Exam: Sitting on a chair without any acute distress Constitutional: well developed and well nourished; not ill appearing Eyes: PERRL, conjunctivae normal, anicteric sclerae ENMT: external ear and nose normal, oropharynx normal Neck: trachea midline, no thyromegaly Respiratory: normal respiratory effort, lungs clear to auscultation Cardiovascular: Rate/Rhythm: regular rate and regular rhythm; not tachycardic Heart Sounds: normal S1 and normal S2; no murmur Extremities: no edema Gastrointestinal (Abdomen): normal bowel sounds, soft, nontender, no hepatosplenomegaly Musculoskeletal: No acute arthritis in any joint Neurologic: Alert, awake and oriented x3 Results & Data Results & Data ([facility]) Vital Signs (Past 12 Hours) Vital Signs Temp Pulse Resp BP Pulse Ox 10/26/20 07:31 36.6 C 67 18 129/76 94 Laboratory Results Short CBC 10/26/20 Range/Units 08:39 WBC 10.14 (4.8-10.8) K/uL Hgb 10.0 L (12.0-16.0) g/dL Hct 30.5 L (37-47) % Plt Count 238 (130-400) K/uL BMP 10/26/20 08:39 Sodium 139 Potassium 3.7 Chloride 106 Carbon Dioxide 27 BUN 15 Creatinine 0.77 Glucose 158 H Calcium 8.5 Medications Administered Current Inpatient Medications Acetaminophen (Acetaminophen 500 Mg Tab) 1,000 mg PO Q8H PRN PRN Reason: MILD Pain Scale 1,2,3 & Pre PT Stop: 11/24/20 14:27 Al Hydrox/Mg Hydrox/Simethicone (Aluminum/Magnesium Susp 30 Ml Udc) 30 ml PO Q6H PRN PRN Reason: Dyspepsia Stop: 11/24/20 14:27 Atorvastatin Calcium (Atorvastatin 20 Mg Tab) 20 mg PO HS YVONNE Stop: 11/24/20 20:59 Last Admin: 10/25/20 20:23 Dose: 20 mg Documented by: Bisacodyl (Bisacodyl 10 Mg Supp) 10 mg [place] DAILY PRN PRN Reason: Constipation Stop: 11/24/20 14:27 Dextrose (Dextrose 50% 50 Ml Syringe) 25 - 50 ml IV UD PRN; Protocol PRN Reason: Hypoglycemia Protocol Stop: 11/24/20 14:59 Diphenhydramine HCl (Diphenhydramine Capsule 25 Mg Cap) 25 mg PO Q6H PRN PRN Reason: Allergic Rhinitis/Insomnia Stop: 11/24/20 14:27 Famotidine (Famotidine 20 Mg Tab) 20 mg PO Q12H PRN PRN Reason: Dyspepsia Stop: 11/24/20 14:27 Gabapentin (Gabapentin 300 Mg Cap) 600 mg PO HS PRN PRN Reason: Pain Stop: 11/24/20 14:27 Glucagon (Glucagon For Inj 1 Mg Vial) 1 mg SQ UD PRN; Protocol PRN Reason: Hypoglycemia Protocol Stop: 11/24/20 14:59 Glucose (Glucose 40% Gel 15 Gm Tube) 15 - 30 gm PO UD PRN; Protocol PRN Reason: Hypoglycemia Protocol Stop: 11/24/20 14:59 Glucose (Glucose 10 Tabs/Tube) 4 - 8 tabs PO UD PRN; Protocol PRN Reason: Hypoglycemia Protocol Stop: 11/24/20 14:59 Hydrochlorothiazide (Hydrochlorothiazide 25 Mg Tab) 12.5 mg PO QAM [facility]ONNE Stop: 11/25/20 08:59 Last Admin: 10/26/20 07:35 Dose: 12.5 mg Documented by: Hydromorphone HCl (Hydromorphone Inj 0.5 Mg/0.5 Ml Syr) 0.5 mg IV Q3H PRN PRN Reason: MOD pain (scale 4-6) & Pre PT Stop: 11/08/20 14:27 Hydromorphone HCl (Hydromorphone Inj 1 Mg/Ml Syringe) 1 mg IV Q3H PRN PRN Reason: severe pain (scale 7-10) Stop: 11/08/20 14:27 Hydroxyzine HCl (Hydroxyzine Hcl 25 Mg Tab) 25 mg PO Q8H PRN PRN Reason: Anxiety Stop: 11/24/20 14:27 Sodium Chloride (Nss 1000ml) 1,000 mls @ 100 mls/hr IV .Q10H YVONNE Stop: 11/24/20 14:27 Last Admin: 10/26/20 08:51 Dose: Not Given Documented by: Promethazine HCl 12.5 mg/ (Sodium Chloride) 50.5 mls @ 202 mls/hr IV Q6H PRN PRN Reason: Nausea &/or Vomiting Stop: 11/24/20 14:27 Acetaminophen (Ofirmev) 1,000 mg in 100 mls @ 400 mls/hr IV Q8H PRN PRN Reason: Pain Rating 1-3 & Pre PT Stop: 10/28/20 14:27 Lorazepam (Ativan) 0.5 mg in 1 mls @ 1 mls/min IV Q8H PRN PRN Reason: Sedation/Anxiety Stop: 11/24/20 14:27 Dexamethasone 8 mg/ Syringe 2 mls @ 1 mls/min IV DAILY [facility] Stop: 11/26/20 08:59 Influenza Virus Vaccine Quadrival (Do Not Administer Flu Vaccine) 1 ea N/A PRN PRN PRN Reason: Notification Stop: 11/24/20 14:27 Insulin Aspart (Insulin Aspart 100 Units/Ml 3 Ml Pen) 0 units SC ACHS Y[facility]ONNE Stop: 11/24/20 16:29 Last Admin: 10/26/20 12:51 Dose: 11 units Documented by: Insulin Glargine (Insulin Glargine Solostar 100 Units/Ml 3 Ml Pen) 10 units SC DAILY [facility] Stop: 11/25/20 09:29 Last Admin: 10/26/20 09:31 Dose: 10 units Documented by: Levothyroxine Sodium (Levothyroxine Sodium 25 Mcg Tablet) 25 mcg PO DAILYBB [facility] Stop: 11/25/20 06:29 Last Admin: 10/26/20 06:09 Dose: 25 mcg Documented by: Lorazepam (Lorazepam 0.5 Mg Tab) 0.5 mg PO Q8H PRN PRN Reason: sedation/anxiety Stop: 11/24/20 14:27 Losartan Potassium (Losartan Potassium 50 Mg Tab) 100 mg PO [facility] Stop: 11/25/20 08:59 Last Admin: 10/26/20 07:36 Dose: 100 mg Documented by: Magnesium Hydroxide (Magnesium Hydroxide Susp 30 Ml Udc) 30 ml PO Q24H PRN PRN Reason: Constipation Stop: 11/24/20 14:27 Metoclopramide HCl (Metoclopramide Hcl Inj 5 Mg/Ml 2 Ml Vial) 10 mg IV Q6H PRN PRN Reason: Nausea &/or Vomiting Stop: 11/24/20 14:27 Metoprolol Succinate (Metoprolol Succ 50mg Ext Rel Tab) 100 mg PO [facility] Stop: 11/25/20 08:59 Last Admin: 10/26/20 07:36 Dose: 100 mg Documented by: Miscellaneous (Carbohydrates For Hypoglycemia ) 15 - 30 gm PO UD PRN PRN Reason: Hypoglycemia Treatment Stop: 11/24/20 14:59 Miscellaneous Information (Pharmacy Glycemic Mgmt Consult) 1 ea N/A UD PRN PRN Reason: Consult Stop: 11/24/20 14:27 Naloxone HCl (Naloxone Hcl 0.4 Mg/1 Ml Vial/Carp) 0.1 mg IV Q5M PRN PRN Reason: Oversedation/respiratory dep Stop: 11/24/20 14:27 Ondansetron HCl (Ondansetron Inj 2 Mg/Ml 2 Ml Vial) 4 mg IV Q6H PRN PRN Reason: Nausea &/or Vomiting Stop: 11/24/20 14:27 Ondansetron HCl (Ondansetron 4 Mg Od Tab) 4 mg PO Q6H PRN PRN Reason: Nausea Stop: 11/24/20 14:27 Oxycodone HCl (Oxycodone Hcl Ir 5 Mg Tab (Immediate Release)) 5 - 10 mg PO Q4H PRN PRN Reason: Pain & Pre PT Stop: 11/08/20 14:27 Last Admin: 10/26/20 12:49 Dose: 10 mg Documented by: Pantoprazole Sodium (Pantoprazole 40 Mg Tab) 40 mg PO QAM [facility] Stop: 11/25/20 08:59 Last Admin: 10/26/20 07:36 Dose: 40 mg Documented by: Pneumococcal Polyvalent Vaccine (Do Not Administer Pneumococcal Vaccine) 1 ea N/A PRN PRN PRN Reason: Notification Stop: 11/24/20 14:27 Polyethylene Glycol (Polyethylene (Miralax) 17 Gm Pack) 17 gm PO Q6 [facility] Stop: 11/25/20 05:59 Last Admin: 10/26/20 12:49 Dose: 17 gm Documented by: Pramipexole Dihydrochloride (Pramipexole Dihydrochlo 0.5 Mg Tab) 0.5 mg PO [facility] Stop: 11/24/20 20:59 Last Admin: 10/25/20 20:23 Dose: 0.5 mg Documented by: Pramipexole Dihydrochloride (Pramipexole Dihydrochlo 0.5 Mg Tab) 0.5 mg PO DAILY@1700 [facility] Stop: 11/24/20 16:59 Last Admin: 10/25/20 18:27 Dose: 0.5 mg Documented by: Senna/Docusate Sodium (Docusate Sodium/Senna 50/8.6mg Tab) 2 tab PO [facility] Stop: 11/24/20 20:59 Last Admin: 10/25/20 20:23 Dose: 2 tab Documented by: Sodium Biphosphate/Sodium Phosphate (Sod Phosphate/Sod Biphosphate Enema 132 Ml Btl) 132 ml [place] ONE PRN PRN Reason: Constipation Stop: 11/24/20 14:27 Tramadol HCl (Tramadol Hcl 50 Mg Tablet) 50 - 100 mg PO Q4H PRN PRN Reason: Moderate-Severe pain & Pre PT Stop: 11/24/20 14:27
[2020-10-26] MEDS: ACETAMINOPHEN 500 MG TAB PO PRN (16:15)
[2020-10-26] MEDS: PRAMIPEXOLE DIHYDROCHLO 0.5 MG TAB PO SCH ×2 (17:48→21:14)
[2020-10-26] MEDS: ATORVASTATIN 20 MG TAB PO SCH (21:13)
[2020-10-26] MEDS: DOCUSATE SODIUM/SENNA 50/8.6MG TAB PO SCH (21:15)
[2020-10-27] MEDS: POLYETHYLENE (MIRALAX) 17 GM PACK PO SCH ×5 (00:23→23:09)
[2020-10-27] MEDS: oxyCODONE HCL IR 5 MG TAB (IMMEDIATE RELEASE) PO PRN ×3 (02:53→18:03)
[2020-10-27] MEDS: LEVOTHYROXINE SODIUM 25 MCG TABLET PO SCH (05:17)
[2020-10-27 07:46] LABS: Basophils # (auto) 0.03 K/uL (0-0.2); Basophils % (auto) 0.3 %; Eosinophils # (auto) 0.13 K/uL (0-0.5); Eosinophils % (auto) 1.4 %; Hematocrit (blood only) 31.6 % (37-47); Hemoglobin 10.3 g/dL (12.0-16.0); Immature Granulocytes # (auto) 0.02 K/uL (0.00-0.02); Immature Granulocytes % (auto) 0.2 %; Lymphocytes # (auto) 1.76 K/uL (1.2-3.4); Lymphocytes % (auto) 19.3 %; Mean Corpuscular Hemoglobin 28.5 pg (25-34); Mean Corpuscular Hgb Conc 32.6 g/dL (32-36); Mean Corpuscular Volume 87.3 fL (80-100); Mean Platelet Volume 11.5 fL (7.4-10.4); Monocytes # (auto) 0.85 K/uL (0.11-0.59); Monocytes % (auto) 9.3 %; Neutrophils # (auto) 6.31 K/uL (1.4-6.5); Neutrophils % (auto) 69.5 %; Platelet Count 247 K/uL (130-400); RDW Coefficient of Variation 13.9 % (11.5-14.5); RDW Standard Deviation 45.3 fL (36.4-46.3); Red Blood Count 3.62 M/uL (4.2-5.4)
[2020-10-27 08:21] LABS: BUN Creatinine Ratio 19.6 (10-20); Calcium 8.7 mg/dl (8.5-10.1); Creatinine Clr Calc Pharmacy 62.8 ml/min; Est GFR (African American) 78.8 ml/min; Potassium 3.7 mmol/L (3.5-5.1)
[2020-10-27] MEDS: PANTOprazole 40 MG TAB PO SCH (08:50)
[2020-10-27] MEDS: hydroCHLOROthiazide 25 MG TAB PO SCH (08:50)
[2020-10-27] MEDS: dexAMETHasone 8 MG in SYRINGE 0 ML IV SCH (08:51)
[2020-10-27] MEDS: INSULIN ASPART 100 UNITS/ML 3 ML PEN SC SCH ×4 (08:52→21:48)
[2020-10-27] MEDS: INSULIN GLARGINE SOLOSTAR 100 UNITS/ML 3 ML PEN SC SCH (08:52)
[2020-10-27] MEDS: METOPROLOL SUCC 50MG EXT REL TAB PO SCH (08:54)
[2020-10-27] MEDS: LOSARTAN POTASSIUM 50 MG TAB PO SCH (08:54)
[2020-10-27] MEDS ORDERED: NovoLIN-N (NPH) PER UNIT CHARGE SQ SCH (09:00)
--- NOTE | 2020-10-27 12:23 | Orthopedic Progress Note ---
Date of Service October 27, 2020 Assessment & Plan (1) Lumbar stenosis with neurogenic claudication: Plan: This time continue physical therapy monitor DONNY output anticipate discharge home next few days. Admission and Anticipated Discharge Date Admission Date: October 25, 2020 Subjective Back pain controlled leg symptoms improved Physical Exam Physical Exam: Patient is sitting up in bed. She is comfortable. Is good strength testing. Results & Data ([facility]) Vital Signs (Past 12 Hours) Vital Signs Temp Pulse Resp BP Pulse Ox 10/27/20 08:52 37.5 C 89 18 142/79 H 93
--- NOTE | 2020-10-27 15:40 | Pharmacy Report ---
Pharmacy Glycemic Short Note 2 - Date of Service October 27, 2020 - Glycemic Short BSG Results (Last 24 hours): 10/26/20 10/26/20 10/27/20 17:14 21:00 06:44 Glucose 201 H POC Glucose 216 H 164 H 10/27/20 10/27/20 08:08 12:17 Glucose POC Glucose 211 H 239 H OUTPATIENT ANTIDIABETIC REGIMEN: * A1c = 8.4% * metformin 1000 mg PO BID ASSESSMENT: 10/27: * Cindy received 44 units of insulin yesterday (10 units basal and 34 units bolus) * I anticipate needs will dramatically increase with dexamethasone 8 mg IV back on board * Will add NPH 35 units which worked well on POD #0 and tighten carb coverage 10/26: * Cindy is POD #1 s/p spinal surgery * She received 51 units of SQ insulin yesterday * 35 units of NPH (for coverage of dexamethasone IV given ru-op) * 16 uits of novolog * BSGs: 160, 189, 218, 269 mg/dL * Fasting BSG of 164 mg/dL is above goal but is consistent with A1c of 8.4%. I will start low dose long acting basal insulin. * Post prandial BSGs are anticipated to be better today as dexamethasone effect wares off. Will tighten carb coverage slightly. PLAN FOR INPATIENT GLYCEMIC CONTROL: * Hold outpatient oral diabetes medications * Basal insulin * Lantus 10 units SQ this morning * NPH 35 units SQ qam - to be given with DXM * Bolus insulin * NovoLog per scale ACHS or Q6hrs while NPO * Goal Range: Low 110 mg/dL - High 140 mg/dL * Correction Factor: 20 mg/dL/unit * Nutritional / Prandial insulin per carb ratio of 1 unit per 6 grams CHO consumed PLAN FOR DISCHARGE: A1c of 8.4% Consider dual combination therapy - metformin plus one of the following: * GLP-1 receptor agonist (liraglutide, semaglutide) -> minimize weight gain/promotes weight loss, low risk of hypoglycemia, decreases major adverse cardiovascular events * SGLT2 inhibitor (empagliflozin, canagliflozin) -> minimize weight gain/promotes weight loss, low risk of hypoglycemia, decreases major adverse cardiovascular events * sulfonylurea --> low cost but can cause weight gain and risk of hypoglycemia Support Patient Self-Management * Healthy Lifestyle (diet, exercise, and smoking cessation) * Disease self-management (SMBG) * Prevention of complications (BP, Lipid goals, Immunizations) * Consider outpatient Diabetes Self-Management Education & Support
[2020-10-27] MEDS: PRAMIPEXOLE DIHYDROCHLO 0.5 MG TAB PO SCH ×2 (15:58→20:25)
[2020-10-27] MEDS: GABAPENTIN 300 MG CAP PO PRN ×2 (18:10→20:26)
--- NOTE | 2020-10-27 18:24 | Hospitalist Progress Note ---
Date of Service October 27, 2020 Assessment & Plan (1) Lumbar stenosis with neurogenic claudication: Plan: Status post L2-L3 decompression fusion, L3-L5 hardware removal Management will be as per orthopedic surgeon She has minimal pain without radiation We will monitor labs-hemoglobin and electrolytes remained stable Medically stable (2) Lumbar degenerative disc disease: Plan: As above (3) Hypothyroidism: Plan: Continue supplement (4) Hyperlipidemia: Plan: Continue statin (5) Obesity: (6) Hypertension: Plan: Blood pressure is well controlled and continue current medication (7) Sleep apnea: Plan: Continue any CPAP at night if she has been using it as an outpatient (8) Restless leg syndrome: Plan: Continue pramipexole (9) GERD (gastroesophageal reflux disease): (10) Diabetes mellitus, type 2: Plan: SSI We will hold Metformin Appreciate glycemic pharmacist input and recommendation (11) Chronic back pain: (12) Broken heart syndrome: Plan: Resume Post Op Care per Surgery Protocol Incentive Spirometry 10x per Hour Resume Relative Home Meds Where Appropriate PT/OT with appropriate fall precautions Transition from IV to PO Pain control DVT Prophylaxis Per Surgery Protocol Monitor Daily Labs Admission and Anticipated Discharge Date Admission Date: October 25, 2020 Subjective 10/26/2020 The patient was seen and examined in medical floor She is a status post lumbar back surgery Sitting on a chair with minimal pain at the back Denies any other symptoms 10/27/2020 The patient was seen and examined in medical floor She has been feeling much better with minimal pain at the back Denies any other symptoms Review of Systems Review of Systems: All systems reviewed and are unremarkable except as noted below Musculoskeletal: Back pain status post lumbar decompression and fusion Physical Exam Physical Exam: Sitting on a chair without any acute distress Constitutional: well developed and well nourished; not ill appearing Eyes: PERRL, conjunctivae normal, anicteric sclerae ENMT: external ear and nose normal, oropharynx normal Neck: trachea midline, no thyromegaly Respiratory: normal respiratory effort, lungs clear to auscultation Cardiovascular: Rate/Rhythm: regular rate and regular rhythm; not tachycardic Heart Sounds: normal S1 and normal S2; no murmur Extremities: no edema Gastrointestinal (Abdomen): normal bowel sounds, soft, nontender, no hepatosplenomegaly Musculoskeletal: No acute arthritis in any joint Neurologic: Alert, awake and oriented x3 Lymphatic: no cervical or axillary lymphadenopathy Results & Data Results & Data ([facility]) Vital Signs (Past 12 Hours) Vital Signs Temp Pulse Resp BP Pulse Ox 10/27/20 15:20 36.7 C 73 16 145/75 H 97 10/27/20 08:52 37.5 C 89 18 142/79 H 93 Laboratory Results Short CBC 10/27/20 Range/Units 06:44 WBC 9.10 (4.8-10.8) K/uL Hgb 10.3 L (12.0-16.0) g/dL Hct 31.6 L (37-47) % Plt Count 247 (130-400) K/uL BMP 10/27/20 06:44 Sodium 137 Potassium 3.7 Chloride 105 Carbon Dioxide 25 BUN 17 Creatinine 0.86 Glucose 201 H Calcium 8.7 Medications Administered Current Inpatient Medications Acetaminophen (Acetaminophen 500 Mg Tab) 1,000 mg PO Q8H PRN PRN Reason: MILD Pain Scale 1,2,3 & Pre PT Stop: 11/24/20 14:27 Last Admin: 10/26/20 16:15 Dose: 1,000 mg Documented by: Al Hydrox/Mg Hydrox/Simethicone (Aluminum/Magnesium Susp 30 Ml Udc) 30 ml PO Q6H PRN PRN Reason: Dyspepsia Stop: 11/24/20 14:27 Atorvastatin Calcium (Atorvastatin 20 Mg Tab) 20 mg PO HS Y[facility]ONNE Stop: 11/24/20 20:59 Last Admin: 10/26/20 21:13 Dose: 20 mg Documented by: Bisacodyl (Bisacodyl 10 Mg Supp) 10 mg [place] DAILY PRN PRN Reason: Constipation Stop: 11/24/20 14:27 Dextrose (Dextrose 50% 50 Ml Syringe) 25 - 50 ml IV UD PRN; Protocol PRN Reason: Hypoglycemia Protocol Stop: 11/24/20 14:59 Diphenhydramine HCl (Diphenhydramine Capsule 25 Mg Cap) 25 mg PO Q6H PRN PRN Reason: Allergic Rhinitis/Insomnia Stop: 11/24/20 14:27 Famotidine (Famotidine 20 Mg Tab) 20 mg PO Q12H PRN PRN Reason: Dyspepsia Stop: 11/24/20 14:27 Gabapentin (Gabapentin 300 Mg Cap) 600 mg PO HS PRN PRN Reason: Pain Stop: 11/24/20 14:27 Last Admin: 10/27/20 18:10 Dose: 300 mg Documented by: Glucagon (Glucagon For Inj 1 Mg Vial) 1 mg SQ UD PRN; Protocol PRN Reason: Hypoglycemia Protocol Stop: 11/24/20 14:59 Glucose (Glucose 40% Gel 15 Gm Tube) 15 - 30 gm PO UD PRN; Protocol PRN Reason: Hypoglycemia Protocol Stop: 11/24/20 14:59 Glucose (Glucose 10 Tabs/Tube) 4 - 8 tabs PO UD PRN; Protocol PRN Reason: Hypoglycemia Protocol Stop: 11/24/20 14:59 Hydrochlorothiazide (Hydrochlorothiazide 25 Mg Tab) 12.5 mg PO QAM [facility] Stop: 11/25/20 08:59 Last Admin: 10/27/20 08:50 Dose: 12.5 mg Documented by: Hydromorphone HCl (Hydromorphone Inj 0.5 Mg/0.5 Ml Syr) 0.5 mg IV Q3H PRN PRN Reason: MOD pain (scale 4-6) & Pre PT Stop: 11/08/20 14:27 Hydromorphone HCl (Hydromorphone Inj 1 Mg/Ml Syringe) 1 mg IV Q3H PRN PRN Reason: severe pain (scale 7-10) Stop: 11/08/20 14:27 Hydroxyzine HCl (Hydroxyzine Hcl 25 Mg Tab) 25 mg PO Q8H PRN PRN Reason: Anxiety Stop: 11/24/20 14:27 Promethazine HCl 12.5 mg/ (Sodium Chloride) 50.5 mls @ 202 mls/hr IV Q6H PRN PRN Reason: Nausea &/or Vomiting Stop: 11/24/20 14:27 Acetaminophen (Ofirmev) 1,000 mg in 100 mls @ 400 mls/hr IV Q8H PRN PRN Reason: Pain Rating 1-3 & Pre PT Stop: 10/28/20 14:27 Lorazepam (Ativan) 0.5 mg in 1 mls @ 1 mls/min IV Q8H PRN PRN Reason: Sedation/Anxiety Stop: 11/24/20 14:27 Dexamethasone 8 mg/ Syringe 2 mls @ 1 mls/min IV DAILY [facility] Stop: 11/26/20 08:59 Last Admin: 10/27/20 08:51 Dose: 1 mls/min Documented by: Influenza Virus Vaccine Quadrival (Do Not Administer Flu Vaccine) 1 ea N/A PRN PRN PRN Reason: Notification Stop: 11/24/20 14:27 Insulin Aspart (Insulin Aspart 100 Units/Ml 3 Ml Pen) 0 units SC ACHS [facility] Stop: 11/24/20 16:29 Last Admin: 10/27/20 18:04 Dose: 6 units Documented by: Insulin Aspart (Insulin Aspart 100 Units/Ml 3 Ml Pen) 0 units SC 0000,[id number] [facility] Stop: 10/28/20 04:01 Insulin Glargine (Insulin Glargine Solostar 100 Units/Ml 3 Ml Pen) 10 units SC DAILY [facility] Stop: 11/25/20 09:29 Last Admin: 10/27/20 08:52 Dose: 10 units Documented by: Levothyroxine Sodium (Levothyroxine Sodium 25 Mcg Tablet) 25 mcg PO DAILYBB [facility] Stop: 11/25/20 06:29 Last Admin: 10/27/20 05:17 Dose: 25 mcg Documented by: Lorazepam (Lorazepam 0.5 Mg Tab) 0.5 mg PO Q8H PRN PRN Reason: sedation/anxiety Stop: 11/24/20 14:27 Last Admin: 10/26/20 21:13 Dose: 0.5 mg Documented by: Losartan Potassium (Losartan Potassium 50 Mg Tab) 100 mg PO QAM [facility] Stop: 11/25/20 08:59 Last Admin: 10/27/20 08:54 Dose: 100 mg Documented by: Magnesium Hydroxide (Magnesium Hydroxide Susp 30 Ml Udc) 30 ml PO Q24H PRN PRN Reason: Constipation Stop: 11/24/20 14:27 Metoclopramide HCl (Metoclopramide Hcl Inj 5 Mg/Ml 2 Ml Vial) 10 mg IV Q6H PRN PRN Reason: Nausea &/or Vomiting Stop: 11/24/20 14:27 Metoprolol Succinate (Metoprolol Succ 50mg Ext Rel Tab) 100 mg PO [facility] Stop: 11/25/20 08:59 Last Admin: 10/27/20 08:54 Dose: 100 mg Documented by: Miscellaneous (Carbohydrates For Hypoglycemia ) 15 - 30 gm PO UD PRN PRN Reason: Hypoglycemia Treatment Stop: 11/24/20 14:59 Miscellaneous Information (Pharmacy Glycemic Mgmt Consult) 1 ea N/A UD PRN PRN Reason: Consult Stop: 11/24/20 14:27 Naloxone HCl (Naloxone Hcl 0.4 Mg/1 Ml Vial/Carp) 0.1 mg IV Q5M PRN PRN Reason: Oversedation/respiratory dep Stop: 11/24/20 14:27 Ondansetron HCl (Ondansetron Inj 2 Mg/Ml 2 Ml Vial) 4 mg IV Q6H PRN PRN Reason: Nausea &/or Vomiting Stop: 11/24/20 14:27 Ondansetron HCl (Ondansetron 4 Mg Od Tab) 4 mg PO Q6H PRN PRN Reason: Nausea Stop: 11/24/20 14:27 Oxycodone HCl (Oxycodone Hcl Ir 5 Mg Tab (Immediate Release)) 5 - 10 mg PO Q4H PRN PRN Reason: Pain & Pre PT Stop: 11/08/20 14:27 Last Admin: 10/27/20 18:03 Dose: 10 mg Documented by: Pantoprazole Sodium (Pantoprazole 40 Mg Tab) 40 mg PO QAM [facility] Stop: 11/25/20 08:59 Last Admin: 10/27/20 08:50 Dose: 40 mg Documented by: Pneumococcal Polyvalent Vaccine (Do Not Administer Pneumococcal Vaccine) 1 ea N/A PRN PRN PRN Reason: Notification Stop: 11/24/20 14:27 Polyethylene Glycol (Polyethylene (Miralax) 17 Gm Pack) 17 gm PO Q6 [facility] Stop: 11/25/20 05:59 Last Admin: 10/27/20 17:52 Dose: Not Given Documented by: Pramipexole Dihydrochloride (Pramipexole Dihydrochlo 0.5 Mg Tab) 0.5 mg PO [facility] Stop: 11/24/20 20:59 Last Admin: 10/26/20 21:14 Dose: 0.5 mg Documented by: Pramipexole Dihydrochloride (Pramipexole Dihydrochlo 0.5 Mg Tab) 0.5 mg PO DAILY@1700 [facility] Stop: 11/24/20 16:59 Last Admin: 10/27/20 15:58 Dose: 0.5 mg Documented by: Senna/Docusate Sodium (Docusate Sodium/Senna 50/8.6mg Tab) 2 tab PO [facility] Stop: 11/24/20 20:59 Last Admin: 10/26/20 21:15 Dose: 2 tab Documented by: Sodium Biphosphate/Sodium Phosphate (Sod Phosphate/Sod Biphosphate Enema 132 Ml Btl) 132 ml [place] ONE PRN PRN Reason: Constipation Stop: 11/24/20 14:27 Tramadol HCl (Tramadol Hcl 50 Mg Tablet) 50 - 100 mg PO Q4H PRN PRN Reason: Moderate-Severe pain & Pre PT Stop: 11/24/20 14:27
[2020-10-27] MEDS: DOCUSATE SODIUM/SENNA 50/8.6MG TAB PO SCH (20:25)
[2020-10-27] MEDS: ATORVASTATIN 20 MG TAB PO SCH (20:25)
[2020-10-28] MEDS: INSULIN ASPART 100 UNITS/ML 3 ML PEN SC SCH ×3 (00:42→08:51)
[2020-10-28] MEDS: LEVOTHYROXINE SODIUM 25 MCG TABLET PO SCH (06:36)
[2020-10-28] MEDS: ACETAMINOPHEN 500 MG TAB PO PRN (06:39)
[2020-10-28 07:15] LABS: Basophils # (auto) 0.01 K/uL (0-0.2); Basophils % (auto) 0.1 %; Eosinophils # (auto) 0.02 K/uL (0-0.5); Eosinophils % (auto) 0.2 %; Hematocrit (blood only) 28.2 % (37-47); Hemoglobin 9.3 g/dL (12.0-16.0); Immature Granulocytes # (auto) 0.03 K/uL (0.00-0.02); Immature Granulocytes % (auto) 0.3 %; Lymphocytes # (auto) 1.94 K/uL (1.2-3.4); Lymphocytes % (auto) 21.6 %; Mean Corpuscular Hemoglobin 28.4 pg (25-34); Mean Corpuscular Volume 86.2 fL (80-100); Mean Platelet Volume 10.6 fL (7.4-10.4); Monocytes % (auto) 11.1 %; Neutrophils # (auto) 5.97 K/uL (1.4-6.5); Neutrophils % (auto) 66.7 %; Platelet Count 221 K/uL (130-400); RDW Coefficient of Variation 13.8 % (11.5-14.5); RDW Standard Deviation 43.6 fL (36.4-46.3); Red Blood Count 3.27 M/uL (4.2-5.4); White Blood Count 8.97 K/uL (4.8-10.8)
--- NOTE | 2020-10-28 08:30 | Discharge Summary ---
Date of Service October 28, 2020 Admission HPI Per Admitting Provider This is a 69-year-old female known to me this presents with chronic persistent back and leg pain after failing course of nonoperative care she is here for surgical invention. Principal Diagnosis Lumbar spinal stenosis with neurogenic claudication Discharge Data Allergies Allergy/AdvReac Type Severity Reaction Status Date / Time Penicillins Allergy Unknown Unknown Verified 10/25/20 08:40 lisinopril AdvReac Mild Cough Verified 10/25/20 08:40 Consultations 10/25/20 14:28 Consult Hospitalist Routine Procedures Performed Operation Date: 10/25/20 10:05 Actual Procedures p L2-L3 Decompression and Fusion, L3-L5 Hardware Removal, with Spinal Cord Monitoring(Not Applicable) - Mika Coleman DO Ordered Studies 10/25/20 10:05 FL lumbar spine 2-3V Routine Hospital Course (1) Lumbar stenosis with neurogenic claudication: Patient with lumbar decompression fusion tolerated so was taken to orthopedic for postoperative. Postop day and when she was up and ambulating. The postop day #2 postop day #3 DONNY drain decreased globally. Excellent strength testing. Pain well controlled. Subsequent discharge home. Discharge orders instructions were on the chart for further review. Total Time Total Time Spent Total Time Spent (In Minutes): 20 minutes Discharge Plan Discharge Items Patient Disposition: Home - Self-Care Reason For Visit: Spinal Stenosis, Lumbar Region with Neurogenic Cla Discharge Diagnosis: Lumbar spinal stenosis with neurogenic claudication Activity: As commented below Non-emergency contact: Primary Care Provider Call non-emergency contact if: you have any medication questions Follow-up/Referrals: Zenia Emerson MD [Primary Care Provider] - Diet: Regular Addtl Attending Provider Instructions: ACTIVITY RECOMMENDATIONS: SELF CARE INSTRUCTIONS AFTER THORACIC/LUMBAR FUSIONS 1. You may walk to your tolerance. It is good exercise for your legs and back. Expect some back and intermittent leg aches and pains. 2. You may perform "counter-top" level activities (make a sandwich, shelbi with a project, etc.). 3. No bending or lifting of more than 10 pounds or back twisting of any nature (roll like a log when turning in bed). 4. You may ride in a car for 20-30 minutes at a time. No driving until after your first visit with your doctor. 5. Frequent changes of position and restricting sitting to 30 minutes at a time will help limit the amount of back spasms and stiffness you may experience. 6. You may discontinue the use of ambulatory aids (cane, crutches, etc.) once your strength and confidence allow. 7. You may sales and marketing vice president the shower and let water strike your incision when you arrive home at least once daily. Do not take a tub bath, sit in a hot tub or go into a swimming pool until after your first recheck in the office. SPECIAL CARE INSTRUCTIONS: VERY IMPORTANT TO READ AND REVIEW A. Your surgical incision has been closed with a cosmetic suture under the skin that will dissolve in about 6 weeks. In 14 days, you can use a pair of clean scissors and cut the suture that is left outside of the skin at the ends of your incision. 1. The small skin tapes can be removed 7 days after surgery if they have not fallen off by that point. 2. You may keep the wound open to air as much as possible to promote healing after post-op day number 5 unless told otherwise by your doctor. 3. If you think the wound looks like it is becoming infected (redness or worsening drainage) and/or you are experiencing fever, chill or worsening back pain and muscle spasms, contact the office so that we may evaluate you as soon as possible. B. Complications are uncommon, but please contact us if you have any signs or symptoms of: 1. wound infection (fever higher than 102.5 degrees F, redness, separation of wound, drainage, or increasing pain from the incision) 2. blood clots in legs (pain, swelling, redness and warmth in legs) 3. urinary tract infection (fever higher than 102.5 degrees F, burning upon urination or increased frequency of urination) 4. nerve problems (inability to walk on your toes or heels, numbness, loss of bowel or bladder control) 5. any other symptoms that concern you C. Please call the office at if you have any concerns or questions about your operation or recovery. D. No smoking! Smoking drastically decreases the chance of a solid fusion. E. Do not take any anti-inflammatory medications (Indocin, Advil, Motrin, Aspirin, Naprosyn, etc.) as these may inhibit the chance of a solid fusion. Tylenol is okay to take for pain. MANAGING PAIN AFTER SPINAL SURGERY 1. Narcotic medication is intended for short-term use and will be provided for surgical pain. Surgical pain usually lasts for a period of 4-6 weeks. Narcotic medication includes Percocet, Vicodin, Darvocet, Tylenol #3 or Lortab. 2. Longer-term pain is more appropriately treated with non-narcotic medication such as Tylenol ES. 3. Muscle spasm is not appropriately treated with narcotics. Muscle relaxers such as Soma, Flexeril or Skelaxin can be used along with Tylenol ES. 4. Remember that we all live with some "aches and pains". This is not unusual or uncommon after an injury or as we get older. a. Back pain is expected and may include muscle spasms for 4 to 6 weeks after surgery. The pain should gradually improve. If the pain worsens for no apparent reason, please contact the office. b. Intermittent leg pain may also be experienced and should not be concerned about unless it worsens for no apparent reason. If so, please contact the office. 5. We will provide appropriate medication within the normal guidelines of their prescribed use. We will also be very cautious and aware of potential abuse and extended duration of patients' medication needs. a. Pain medications are for your comfort and to assist with sleep and rest so that the tissue can heal. They are not provided in order to return to normal activity and should not be used through the day. To do so or worsening pain at night can result from ongoing tissue damage and deve lopment of tolerance to the prescribed medicine. 6. Please allow 2-3 days to process refills. Prescriptions will not be mailed but must be picked up at the office. FOLLOW UP VISIT: Keep your scheduled follow-up appointment. Any questions, please call the office at . Pending Studies at Discharge: No Stand-Alone Forms: My [facility], Smoking Cessation Medications and DC Order Prescriptions: New oxycodone 5 mg tablet 5 mg PO Q6H PRN (Reason: pain, severe) Qty: 30 RF: 0 tramadol 50 mg tablet 50 mg PO Q6H PRN (Reason: pain, moderate) Qty: 30 RF: 0 Continued metformin 500 mg Tablet 1,000 mg PO BID RF: 0 atorvastatin 20 mg Tablet 20 mg PO HS RF: 0 pramipexole 0.5 mg Tablet 0.5 mg PO QPM RF: 0 pramipexole 0.5 mg Tablet See Rx Instructions .ROUTE .COMPLEX RF: 0 potassium 99 mg Tablet 99 mg PO QAM RF: 0 gabapentin 300 mg Capsule 600 mg PO HS PRN (Reason: Pain) RF: 0 omeprazole 20 mg Capsule,Delayed Release(Dr/Ec) 20 mg PO QAM RF: 0 polyethylene glycol 3350 [Miralax] 17 gram/dose Powder 17 g PO DAILY PRN (Reason: Constipation) RF: 0 albuterol sulfate 90 mcg/actuation Hfa Aerosol Inhaler 1 inh INHALATION QID PRN (Reason: sob) RF: 0 hydrochlorothiazide 12.5 mg Tablet 12.5 mg PO QAM RF: 0 ibuprofen [Advil] 200 mg Tablet 200 mg PO Q6H PRN (Reason: Pain) RF: 0 acetaminophen 500 mg Capsule 500 mg PO Q6H PRN (Reason: Pain) RF: 0 metoprolol succinate 100 mg tablet extended release 24 hr 100 mg PO DAILY RF: 0 losartan 100 mg tablet 100 mg PO DAILY RF: 0 levothyroxine [Synthroid] 25 mcg Tablet 25 mcg PO DAILY RF: 0 Discharge Orders: Discharge Order (Routine); Ordered 10/28/20 Ordered By: Mika Coleman Admission Data Admit Date/Time: 10/25/20 11:52 Attending Provider: Mika Coleman Admit Provider: Mika Coleman Primary Care Provider: Zenia Emerson Other Providers: Vito Rubio ; Lorraine Breaux
[2020-10-28] MEDS: dexAMETHasone 8 MG in SYRINGE 0 ML IV SCH (08:39)
[2020-10-28] MEDS: INSULIN GLARGINE SOLOSTAR 100 UNITS/ML 3 ML PEN SC SCH (08:49)
[2020-10-28] MEDS: METOPROLOL SUCC 50MG EXT REL TAB PO SCH (08:53)
[2020-10-28] MEDS: LOSARTAN POTASSIUM 50 MG TAB PO SCH (08:56)
[2020-10-28] MEDS: hydroCHLOROthiazide 25 MG TAB PO SCH (08:56)
[2020-10-28] MEDS ORDERED: NovoLIN-N (NPH) PER UNIT CHARGE SQ SCH (09:00)
[2020-10-28] MEDS: oxyCODONE HCL IR 5 MG TAB (IMMEDIATE RELEASE) PO PRN (09:02)
--- NOTE | 2020-10-28 09:24 | Hospitalist Progress Note ---
Date of Service October 28, 2020 Assessment & Plan (1) Lumbar stenosis with neurogenic claudication: Plan: Status post L2-L3 decompression fusion, L3-L5 hardware removal Management will be as per orthopedic surgeon Pain reportedly controlled with current medical therapy. DONNY drain in place-wound care per ortho PT/OT per Ortho (2) Post-operative state: Plan: POD#3 s/p lumbar decompression and fusion. (3) Hypothyroidism: Plan: chronic, cont home levothyroxine (4) Hypertension: Plan: around goal, cont current medical therapy. (5) Sleep apnea: Plan: Cont CPAP qHS. (6) Restless leg syndrome: Plan: Continue pramipexole, we discussed taking gabapentin this am, however, she was not wanting to mix this with narcotic pain medication. Typically takes gabapentin at night. Will adjust as needed for symptom control. (7) Diabetes mellitus, type 2: Plan: Glycemic pharmacist following, glucose at goal inpatient. Cont current basal bolus insulin with adjustments to correct for dexamethasone. Cont holding outpatient metformin. (8) Obesity: (9) DVT prophylaxis: Plan: SCDs/ambulation Full Code Dispo-per Ortho Thank you for this consultation. We will continue to follow this patient thro ughout their hospital stay. Lorraine Breaux DO [facility] Hospitalist Admission and Anticipated Discharge Date Admission Date: October 25, 2020 Subjective 69 yo F POD 3 s/p lumbar decompression and fusion by Dr. Coleman. -reports pain well controlled with meds -has issues wtih RLS this am -questions taking extra gabapentin -tolerating PO -afebrile -ambulating Review of Systems Review of Systems: All systems were reviewed and negative except as indicated in HPI above. Physical Exam Physical Exam: CONSTITUTIONAL: WNWD, vitals as above, generally well- appearing EYES: normal conjunctivae, no scleral icterus ENT: external ear and nose normal, MMM RESPIRATORY: crackles at left base, clear on the left, no rales or wheezes, normal respiratory effort CARDIOVASCULAR: regular rate and rhythm, S1 and 2 heard without murmurs, gallops or rubs, no JVD, no peripheral edema CHEST: inspection of chest was normal GASTROINTESTINAL: soft, nontender, nondistended. MUSCULOSKELETAL: strength 5/5 throughout, head is normocephalic and atraumatic, neck supple, normal palpation of chest wall without tenderness SKIN: warm and dry, back incision covered with bandage that is c/d/i, DONNY drain in place. NEUROLOGIC: CN 2-12 grossly intact, no sensory deficit, normal cognition, normal speech, no tremor PSYCHIATRIC: alert cooperative and oriented to person, place and time. Euthymic mood, makes good eye contact, language grossly intact, recent and remote memory grossly intact. Results & Data Results & Data ([facility]) Vital Signs (Past 12 Hours) Vital Signs Temp Pulse Resp BP Pulse Ox 10/28/20 06:42 36.6 C 76 16 154/87 H 95 10/27/20 22:38 36.7 C 83 16 113/70 93 Laboratory Results Short CBC 10/28/20 Range/Units 07:00 WBC 8.97 (4.8-10.8) K/uL Hgb 9.3 L (12.0-16.0) g/dL Hct 28.2 L (37-47) % Plt Count 221 (130-400) K/uL Medications Administered Current Inpatient Medications Acetaminophen (Acetaminophen 500 Mg Tab) 1,000 mg PO Q8H PRN PRN Reason: MILD Pain Scale 1,2,3 & Pre PT Stop: 11/24/20 14:27 Last Admin: 10/28/20 06:39 Dose: 1,000 mg Documented by: Al Hydrox/Mg Hydrox/Simethicone (Aluminum/Magnesium Susp 30 Ml Udc) 30 ml PO Q6H PRN PRN Reason: Dyspepsia Stop: 11/24/20 14:27 Atorvastatin Calcium (Atorvastatin 20 Mg Tab) 20 mg PO HS YVONNE Stop: 11/24/20 20:59 Last Admin: 10/27/20 20:25 Dose: 20 mg Documented by: Bisacodyl (Bisacodyl 10 Mg Supp) 10 mg IA DAILY PRN PRN Reason: Constipation Stop: 11/24/20 14:27 Dextrose (Dextrose 50% 50 Ml Syringe) 25 - 50 ml IV UD PRN; Protocol PRN Reason: Hypoglycemia Protocol Stop: 11/24/20 14:59 Diphenhydramine HCl (Diphenhydramine Capsule 25 Mg Cap) 25 mg PO Q6H PRN PRN Reason: Allergic Rhinitis/Insomnia Stop: 11/24/20 14:27 Famotidine (Famotidine 20 Mg Tab) 20 mg PO Q12H PRN PRN Reason: Dyspepsia Stop: 11/24/20 14:27 Gabapentin (Gabapentin 300 Mg Cap) 600 mg PO HS PRN PRN Reason: Pain Stop: 11/24/20 14:27 Last Admin: 10/27/20 20:26 Dose: 300 mg Documented by: Glucagon (Glucagon For Inj 1 Mg Vial) 1 mg SQ UD PRN; Protocol PRN Reason: Hypoglycemia Protocol Stop: 11/24/20 14:59 Glucose (Glucose 40% Gel 15 Gm Tube) 15 - 30 gm PO UD PRN; Protocol PRN Reason: Hypoglycemia Protocol Stop: 11/24/20 14:59 Glucose (Glucose 10 Tabs/Tube) 4 - 8 tabs PO UD PRN; Protocol PRN Reason: Hypoglycemia Protocol Stop: 11/24/20 14:59 Hydrochlorothiazide (Hydrochlorothiazide 25 Mg Tab) 12.5 mg PO QAM YVONNE Stop: 11/25/20 08:59 Last Admin: 10/28/20 08:56 Dose: 12.5 mg Documented by: Hydromorphone HCl (Hydromorphone Inj 0.5 Mg/0.5 Ml Syr) 0.5 mg IV Q3H PRN PRN Reason: MOD pain (scale 4-6) & Pre PT Stop: 11/08/20 14:27 Hydromorphone HCl (Hydromorphone Inj 1 Mg/Ml Syringe) 1 mg IV Q3H PRN PRN Reason: severe pain (scale 7-10) Stop: 11/08/20 14:27 Hydroxyzine HCl (Hydroxyzine Hcl 25 Mg Tab) 25 mg PO Q8H PRN PRN Reason: Anxiety Stop: 11/24/20 14:27 Promethazine HCl 12.5 mg/ (Sodium Chloride) 50.5 mls @ 202 mls/hr IV Q6H PRN PRN Reason: Nausea &/or Vomiting Stop: 11/24/20 14:27 Acetaminophen (Ofirmev) 1,000 mg in 100 mls @ 400 mls/hr IV Q8H PRN PRN Reason: Pain Rating 1-3 & Pre PT Stop: 10/28/20 14:27 Lorazepam (Ativan) 0.5 mg in 1 mls @ 1 mls/min IV Q8H PRN PRN Reason: Sedation/Anxiety Stop: 11/24/20 14:27 Dexamethasone 8 mg/ Syringe 2 mls @ 1 mls/min IV DAILY [facility] Stop: 11/26/20 08:59 Last Admin: 10/28/20 08:39 Dose: 1 mls/min Documented by: Influenza Virus Vaccine Quadrival (Do Not Administer Flu Vaccine) 1 ea N/A PRN PRN PRN Reason: Notification Stop: 11/24/20 14:27 Insulin Aspart (Insulin Aspart 100 Units/Ml 3 Ml Pen) 0 units SC ACHS [facility] Stop: 11/24/20 16:29 Last Admin: 10/28/20 08:51 Dose: 10 units Documented by: Insulin Glargine (Insulin Glargine Solostar 100 Units/Ml 3 Ml Pen) 10 units SC DAILY [facility] Stop: 11/25/20 09:29 Last Admin: 10/28/20 08:49 Dose: 10 units Documented by: Insulin Human NPH (Novolin-N (Nph) Per Unit Charge) 35 units SQ QAM [facility] Stop: 10/28/20 12:00 Levothyroxine Sodium (Levothyroxine Sodium 25 Mcg Tablet) 25 mcg PO DAILYBB [facility] Stop: 11/25/20 06:29 Last Admin: 10/28/20 06:36 Dose: 25 mcg Documented by: Lorazepam (Lorazepam 0.5 Mg Tab) 0.5 mg PO Q8H PRN PRN Reason: sedation/anxiety Stop: 11/24/20 14:27 Last Admin: 10/26/20 21:13 Dose: 0.5 mg Documented by: Losartan Potassium (Losartan Potassium 50 Mg Tab) 100 mg PO QAM [facility] Stop: 11/25/20 08:59 Last Admin: 10/28/20 08:56 Dose: 100 mg Documented by: Magnesium Hydroxide (Magnesium Hydroxide Susp 30 Ml Udc) 30 ml PO Q24H PRN PRN Reason: Constipation Stop: 11/24/20 14:27 Metoclopramide HCl (Metoclopramide Hcl Inj 5 Mg/Ml 2 Ml Vial) 10 mg IV Q6H PRN PRN Reason: Nausea &/or Vomiting Stop: 11/24/20 14:27 Metoprolol Succinate (Metoprolol Succ 50mg Ext Rel Tab) [facility] [place] Stop: 11/25/20 08:59 Last Admin: 10/28/20 08:53 Dose: 100 mg Documented by: Miscellaneous (Carbohydrates For Hypoglycemia ) 15 - 30 gm PO UD PRN PRN Reason: Hypoglycemia Treatment Stop: 11/24/20 14:59 Miscellaneous Information (Pharmacy Glycemic Mgmt Consult) 1 ea N/A UD PRN PRN Reason: Consult Stop: 11/24/20 14:27 Naloxone HCl (Naloxone Hcl 0.4 Mg/1 Ml Vial/Carp) 0.1 mg IV Q5M PRN PRN Reason: Oversedation/respiratory dep Stop: 11/24/20 14:27 Ondansetron HCl (Ondansetron Inj 2 Mg/Ml 2 Ml Vial) 4 mg IV Q6H PRN PRN Reason: Nausea &/or Vomiting Stop: 11/24/20 14:27 Ondansetron HCl (Ondansetron 4 Mg Od Tab) 4 mg PO Q6H PRN PRN Reason: Nausea Stop: 11/24/20 14:27 Oxycodone HCl (Oxycodone Hcl Ir 5 Mg Tab (Immediate Release)) 5 - 10 mg PO Q4H PRN PRN Reason: Pain & Pre PT Stop: 11/08/20 14:27 Last Admin: 10/28/20 09:02 Dose: 10 mg Documented by: Pantoprazole Sodium (Pantoprazole 40 Mg Tab) 40 [facility] [place] Stop: 11/25/20 08:59 Last Admin: 10/27/20 08:50 Dose: 40 mg Documented by: Pneumococcal Polyvalent Vaccine (Do Not Administer Pneumococcal Vaccine) 1 ea N/A PRN PRN PRN Reason: Notification Stop: 11/24/20 14:27 Pramipexole Dihydrochloride (Pramipexole Dihydrochlo 0.5 Mg Tab) 0.5 mg PO [facility] Stop: 11/24/20 20:59 Last Admin: 10/27/20 20:25 Dose: 0.5 mg Documented by: Pramipexole Dihydrochloride (Pramipexole Dihydrochlo 0.5 Mg Tab) 0.5 mg PO DAILY@1700 [facility] Stop: 11/24/20 16:59 Last Admin: 10/27/20 15:58 Dose: 0.5 mg Documented by: Senna/Docusate Sodium (Docusate Sodium/Senna 50/8.6mg Tab) 2 tab PO [facility] Stop: 11/24/20 20:59 Last Admin: 10/27/20 20:25 Dose: 2 tab Documented by: Sodium Biphosphate/Sodium Phosphate (Sod Phosphate/Sod Biphosphate Enema 132 Ml Btl) 132 ml IA ONE PRN PRN Reason: Constipation Stop: 11/24/20 14:27 Tramadol HCl (Tramadol Hcl 50 Mg Tablet) 50 - 100 mg PO Q4H PRN PRN Reason: Moderate-Severe pain & Pre PT Stop: 11/24/20 14:27
[2020-10-28] MEDS: PANTOprazole 40 MG TAB PO SCH (09:27)
== END 2020-10-28 10:28 | disposition home or self-care (01) | DRG 454 ==
LOC: ASU 08:04 → PACUINP 11:52 → 3N 14:31